=== PATIENT | male | born 1950 | race Caucasian/White ===

== ENCOUNTER → 2017-08-18 | Outpatient (CLI) | payer OTHER ==
[~2017-08-18] MED LIST: AMT50 PO; ASCO100061 PO; ASPI81TA28 PO; ATOR-24 PO; CLON0.5T3 PO; COEN10CA5 PO; DEXL60CA4 PO; ESCI1TAB10 PO; FLUT0.0529 NAE; GLUC15002 PO; IMT100 PO; MULT-506 PO; OMEG12006 PO; RIBO1TAB4 PO; TAMS0.4C38 PO; TOPI50TA16 PO
--- NOTE | 2017-08-18 11:13 | DIAGNOSTIC IMAGING REPORT ---
KUB HISTORY: Follow-up study in a patient with history of kidney stones N20.0 [id number] COMPARISON: KUB 12/14/2013, CT 11/24/2013. FINDINGS: The bowel gas pattern is non-obstructive. 1.5 cm radiodensity overlying the ascending colon suggests ingested material. There is no organomegaly. Renal shadows are partially obscured by bowel gas. No definite renal calculi identified. No ureteral calculi. No pneumoperitoneum or pneumatosis. No fracture. Vascular calcifications are noted. IMPRESSION: No renal or ureteral stones identified. Electronically signed by: Woody Baires M.D. 08/18/2017 11:11 AM Dictated Date/Time: 08/18/2017 11:10 AM
== END | disposition home or self-care (01) ==
LOC: C.RAD 09:49
PROVIDERS: ATTEND Urology
DX: N20.0 Calculus of kidney (principal); N40.1 Benign prostatic hyperplasia with lower urinary tract symptoms

== ENCOUNTER 2017-08-31 21:33 | Observation (INO) | payer OTHER ==
[~2017-08-31] VITALS: Ht 170.2 cm; Wt 83.3 kg
--- NOTE | 2017-08-31 22:10 | DIAGNOSTIC IMAGING REPORT ---
CHEST ONE VIEW PORTABLE HISTORY: 67 years-old Male CHEST PAIN acute atypical chest pain COMPARISON: Portable chest radiograph 01/01/2014 TECHNIQUE: Portable AP view of the chest FINDINGS: Cardiomediastinal and hilar silhouettes are within normal limits. Tortuosity of the descending thoracic aorta redemonstrated. There is no pneumothorax, pleural effusion, focal airspace consolidation or overt pulmonary edema. Degenerative changes are seen within the bilateral shoulders. The bones appear grossly intact. IMPRESSION: No acute cardiopulmonary process. The above report was generated using voice recognition software. It may contain grammatical, syntax or spelling errors. Electronically signed by: Woody Baires M.D. 08/31/2017 10:08 PM Dictated Date/Time: 08/31/2017 10:07 PM
[2017-08-31 22:22] LABS: MEAN PLATELET VOLUME 9.9 fL (7.4-10.4)
[2017-08-31] MEDS ORDERED: COEN1CAP17 PO (22:34)
[2017-08-31] MEDS ORDERED: OMEG10007 PO (22:34)
[2017-08-31] MEDS ORDERED: PSYL0.524 PO (22:34)
[2017-08-31] MEDS ORDERED: MULT-513 PO (22:34)
[2017-08-31 22:35] LABS: POINT OF CARE TROPONIN I < 0.030 ng/ml (0-0.045)
[2017-08-31 22:37] LABS: BASO % 0.6 %; BASO ABS # 0.04 K/uL (0-0.2); COMPLETE YES; HEMATOCRIT 43.5 % (42-52); IG% 0.2 %; LYMPH % 34.2 %; LYMPH ABS # 2.17 K/uL (1.2-3.4); MEAN CELL VOLUME 92.4 fL (80-100); MEAN CORPUSCULAR HEMOGLOBIN 32.3 pg (25-34); MEAN CORPUSCULAR HGB CONC 34.9 g/dl (32-36); PLATELET COUNT 179 K/uL (130-400); RED BLOOD COUNT 4.71 M/uL (4.7-6.1); WHITE BLOOD COUNT 6.34 K/uL (4.8-10.8)
[2017-08-31] MEDS ORDERED: ASPI81TA28 PO (22:39)
[2017-08-31 22:41] LABS: ALT/SGPT 40 U/L (12-78); AST/SGOT 16 U/L (15-37); BLOOD UREA NITROGEN 20 mg/dl (7-18); BUN/CREATININE RATIO 16.8 (10-20); CALCIUM 8.3 mg/dl (8.5-10.1); CARBON DIOXIDE 26 mmol/L (21-32); CHLORIDE 107 mmol/L (98-107); CREATININE 1.19 mg/dl (0.60-1.40); GLUCOSE 88 mg/dl (70-99); POTASSIUM 3.6 mmol/L (3.5-5.1); SODIUM 140 mmol/L (136-145)
[2017-08-31 22:44] LABS: ALKALINE PHOSPHATASE 93 U/L (45-117)
[2017-08-31] MEDS ORDERED: OPTIRAY 320 IV PRN (23:00)
[2017-08-31] MEDS ORDERED: ASPIRIN 81 MG CHEW PO STA (23:57)
--- NOTE | 2017-09-01 00:03 | History and Physical ---
History & Physical Date & Time of Service: Sep 01, 2017 at 00:03 Chief Complaint: Tight Chest Back Pain Primary Care Physician: Roe Abreu D.O. History of Present Illness Source: patient Patient is a 67 yr male with PMH of Vertigo, BPH, GERD, Alfaro's Esophagus, Hyperlipidemia, MVP and Migraine presents with history of retrosternal chest pain that started at around 9pm today while at rest. Patient took 2 baby Aspirin and came to ED for further evaluation. Chest pain is "tightness" like radiating to back of chest, which lasted for about 20 minutes, 6/10 intensity, with no aggravating/relieving factors, has associated dizziness. Patient follows with for MVP. Patient states his migraine has been uncontrolled and has been requiring Sumatriptan almost everyday since last 2 weeks. His last stress test is in 2012 which was normal. Currently while in ED symptoms resolved. Denies any history of SOB, palpitations, orthopnea, PND, leg edema, diaphoresis, cough, fever, chills, change in vision, nausea, vomiting, abdominal pain, diarrhea, change in appetite, dysuria, recent Travel. Past Medical/Surgical History Medical Problems: (1) GERD (gastroesophageal reflux disease) Status: Chronic (2) History of BPH Status: Chronic (3) Hyperlipidemia Status: Chronic (4) Kidney stones Status: Chronic (5) Mitral valve prolapse Status: Chronic Surgical Problems: (1) History of knee surgery Status: Resolved Family History FHx: heart disease Father/Mother: Heart disease, HTN Social History Smoking Status: Never Smoker Alcohol Use: socially Drug Use: none Marital Status: Housing status: lives with family Occupational Status: employed Multi-Drug Resistant Organisms History of MDRO: No Allergies Coded Allergies: Meloxicam (Verified Allergy, Unknown, ., 08/31/17) Rofecoxib (Verified Allergy, Unknown, ., 08/31/17) Sulfa Drugs (Verified Allergy, Unknown, ., 08/31/17) Home Medications Scheduled Amitriptyline Hcl (Elavil), 100 MG PO HS Amitriptyline Hcl (Elavil), 50 MG PO QAM Aspirin (Aspirin Ec), 81 MG PO DAILY Aspirin (Aspirin Ec), 162 MG PO TODAY Atorvastatin (Lipitor), 40 MG PO DAILY Coenzyme Q10 (Ubidecarenone) (Co Q 10), 100 MG PO BID Dexlansoprazole (Dexilant), 60 MG PO DAILY Escitalopram Oxalate (Lexapro), 20 MG PO DAILY Fish Oil ([place]-3), 2 CAP PO QAM Zrnlgswhcep-Pvbvdwpspgl-Ivq C- (Glucosamine 1500 Complex), 2 CAP PO QAM Multivitamins/Minerals (Mvi With Minerals), 1 TAB PO DAILY Riboflavin (Riboflavin), 200 MG PO BID Tamsulosin Hcl (Flomax), 0.4 MG PO QPM Topiramate (Topamax), 50 MG PO QAM Topiramate (Topamax), 100 MG PO QPM Scheduled PRN Clonazepam (Klonopin), 0.5 MG PO HS PRN for Sleep Psyllium (Metamucil), 1 CAP PO TID PRN for Constipation Sumatriptan Succinate (Imitrex), 100 MG PO UD PRN for Migraine Review of Systems See HPI for pertinent positives & negatives. A total of 10 systems reviewed and were otherwise negative. Physical Exam Vital Signs Date Time Temp Pulse Resp B/P (MAP) Pulse Ox O2 Delivery O2 Flow Rate FiO2 08/31/17 23:30 91 16 144/103 97 Room Air 08/31/17 22:33 64 16 131/92 96 Room Air 08/31/17 22:30 Room Air 08/31/17 22:25 66 08/31/17 21:36 36.6 78 18 144/91 95 Room Air General Appearance: WD/WN, no apparent distress Head: normocephalic, atraumatic Eyes: normal inspection, PERRL, EOMI, sclerae normal ENT: normal ENT inspection, hearing grossly normal Neck: supple, trachea midline Respiratory/Chest: chest non-tender, lungs clear, normal breath sounds, no respiratory distress, no accessory muscle use Cardiovascular: regular rate, rhythm, no edema, no murmur Abdomen/GI: normal bowel sounds, non tender, soft Back: normal inspection Extremities/Musculoskelatal: normal inspection, no pedal edema Neurologic/Psych: rubber and pounder II-XII nml as tested, no motor/sensory deficits, alert, normal mood/affect, oriented x 3 Skin: normal color, warm/dry Diagnostics Laboratory Results Results Past 24 Hours Test 08/31/17 22:10 08/31/17 22:16 Range/Units White Blood Count 6.34 4.8-10.8 K/uL Red Blood Count 4.71 4.7-6.1 M/uL Hemoglobin 15.2 14.0-18.0 g/dL Hematocrit 43.5 42-52 % Mean Corpuscular Volume 92.4 80-100 fL Mean Corpuscular Hemoglobin 32.3 25-34 pg Mean Corpuscular Hemoglobin Concent 34.9 32-36 g/dl Platelet Count 179 130-400 K/uL Mean Platelet Volume 9.9 7.4-10.4 fL Neutrophils (%) (Auto) 51.0 % Lymphocytes (%) (Auto) 34.2 % Monocytes (%) (Auto) 11.0 % Eosinophils (%) (Auto) 3.0 % Basophils (%) (Auto) 0.6 % Neutrophils # (Auto) 3.23 1.4-6.5 K/uL Lymphocytes # (Auto) 2.17 1.2-3.4 K/uL Monocytes # (Auto) 0.70 0.11-0.59 K/uL Eosinophils # (Auto) 0.19 0-0.5 K/uL Basophils # (Auto) 0.04 0-0.2 K/uL RDW Standard Deviation 44.1 36.4-46.3 fL RDW Coefficient of Variation 13.1 11.5-14.5 % Immature Granulocyte % (Auto) 0.2 % Immature Granulocyte # (Auto) 0.01 0.00-0.02 K/uL Sodium Level 140 136-145 mmol/L Potassium Level 3.6 3.5-5.1 mmol/L Chloride Level 107 98-107 mmol/L Carbon Dioxide Level 26 21-32 mmol/L Anion Gap 7.0 3-11 mmol/L Blood Urea Nitrogen 20 7-18 mg/dl Creatinine 1.19 0.60-1.40 mg/dl Est Creatinine Clear Calc Drug Dose 61.2 ml/min Estimated GFR () 71.8 Estimated GFR (Non- 62.0 BUN/Creatinine Ratio 16.8 10-20 Random Glucose 88 70-99 mg/dl Calcium Level 8.3 8.5-10.1 mg/dl Total Bilirubin 0.3 0.2-1 mg/dl Direct Bilirubin < 0.1 0-0.2 mg/dl Aspartate Amino Transf (AST/SGOT) 16 15-37 U/L Alanine Aminotransferase (ALT/SGPT) 40 12-78 U/L Alkaline Phosphatase 93 45-117 U/L Total Protein 6.8 6.4-8.2 gm/dl Albumin 3.3 3.4-5.0 gm/dl Lipase 184 73-393 U/L Bedside D-Dimer > 450 0-450 ng/mlFEU Bedside Troponin I < 0.030 0-0.045 ng/ml Diagnostic Radiology CXR: No acute cardiopulmonary process CTA: Preliminary Report: No pulmonary embolus or other acute abnormality identified. Normal thoracic aorta without aneurysm or dissection. Basilar dependent atelectasis. Lungs are otherwise clear. Question small hypodense nodule in the left thyroid. EKG EKG: NSR, No signs of Ischemia Impression Assessment and Plan Chest Pain: R/O ACS Risk factors: H/O HLP, Family history Initial troponin:Negative EKG shows:NSR CXR: Unremarkable CTA: No PE on preliminary report Last ECHO: EF:60-64% March 2017; Moderate MR, [place] posterior mitral leaflet prolapse Trend serial cardiac enzymes, repeat EKG, fasting lipid panel in AM Continue Aspirin, statins Oxygen PRN NPO after midnight Cardiology consulted Hold Sumatriptan HTN: Elevated likely situational No known history of HTN Labetalol PRN monitor Elevated D-Dimer: CTA: No PE Check venous doppler BPH: Continue flomax GERD: Alfaro's Esophagus: Continue PPI Hyperlipidemia: Continue Lipitor Migraine: Continue home meds Hold Sumatriptan DVT Px: Heparin SQ Code Status: Full Code Disposition: Expect to discharge when when stable
--- NOTE | 2017-09-01 00:05 | EMERGENCY ROOM VISIT NOTE ---
History First contact with patient: 21:40 Chief Complaint: CHEST PAIN Stated Complaint: TIGHT CHEST BACK PAIN History of Present Illness The patient is a 67 year old male who presents to the Emergency Room with complaints of midsternal chest pain and back pain that did not radiate together for the past hour that is now resolved that was 6 out of 10 described as tightness that is completely relieved now. Patient has a history of mitral valve prolapse. 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 No recent stress test or echo. No prior heart attack. No prior stroke. No known aneurysm. No history of blood clots. No recent travel. He does not smoke. Patient states the symptoms have completely resolved. Patient denies dyspnea, abdominal pain, diaphoresis, leg pain or swelling, recent illness. Patient exercises 3 times a week without difficulties. Patient took 2 81 mg aspirins at home. Review of Systems See HPI for pertinent positives & negatives. A total of 10 systems reviewed and were otherwise negative. Past Medical/Surgical History Medical Problems: (1) GERD (gastroesophageal reflux disease) (2) History of BPH (3) Hyperlipidemia (4) Kidney stones (5) Mitral valve prolapse Surgical Problems: (1) History of knee surgery Depression, migraines Family History FHx: heart disease Social History Smoking Status: Never Smoker Alcohol Use: none Drug Use: none Marital Status: Housing Status: lives with family Occupation Status: employed Current/Historical Medications Scheduled Amitriptyline Hcl (Elavil), 100 MG PO HS Amitriptyline Hcl (Elavil), 50 MG PO QAM Aspirin (Aspirin Ec), 81 MG PO DAILY Aspirin (Aspirin Ec), 162 MG PO TODAY Atorvastatin (Lipitor), 40 MG PO DAILY Coenzyme Q10 (Ubidecarenone) (Co Q 10), 100 MG PO BID Dexlansoprazole (Dexilant), 60 MG PO DAILY Escitalopram Oxalate (Lexapro), 20 MG PO DAILY Fish Oil ([place]-3), 2 CAP PO QAM Kobdxwpegqy-Aynzpllfvgd-Fiu C- (Glucosamine 1500 Complex), 2 CAP PO QAM Multivitamins/Minerals (Mvi With Minerals), 1 TAB PO DAILY Riboflavin (Riboflavin), 200 MG PO BID Tamsulosin Hcl (Flomax), 0.4 MG PO QPM Topiramate (Topamax), 50 MG PO QAM Topiramate (Topamax), 100 MG PO QPM Scheduled PRN Clonazepam (Klonopin), 0.5 MG PO HS PRN for Sleep Psyllium (Metamucil), 1 CAP PO TID PRN for Constipation Sumatriptan Succinate (Imitrex), 100 MG PO UD PRN for Migraine Physical Exam Vital Signs Date Time Temp Pulse Resp B/P (MAP) Pulse Ox O2 Delivery O2 Flow Rate FiO2 08/31/17 23:30 91 16 144/103 97 Room Air 08/31/17 22:33 64 16 131/92 96 Room Air 08/31/17 22:30 Room Air 08/31/17 22:25 66 08/31/17 21:36 36.6 78 18 144/91 95 Room Air Physical Exam VITALS: Vitals are noted on the nurse's note and reviewed by myself. Vital signs stable. GENERAL: Pleasant male, in no acute distress, nondiaphoretic, well-developed well-nourished. SKIN: The skin was without rashes, erythema, edema, or bruising. There is no tenting of the skin. Capillary reflex less than 2 seconds. HEAD: Normocephalic atraumatic. EARS: External auditory canals clear, tympanic membranes pearly mckeon without erythema or effusion bilaterally. EYES: Pupils equal round and reactive to light and accommodation. Conjunctivae without injection, sclerae without icterus. Extraocular movements intact. NOSE: Patent, turbinates without inflammation or discharge MOUTH: Mucous membranes moist. Pharynx without erythema or exudate. Uvula midline. Airway patent. Tongue does not deviate. NECK: Supple without nuchal rigidity. No lymphadenopathy. No thyromegaly. Cervical spine is nontender. No JVD. HEART: Regular rate and rhythm chest nontender to palpation LUNGS: Clear to auscultation bilaterally without wheezes, rales or rhonchi. No dullness to percussion. No retractions or accessory muscle use. ABDOMEN: Positive bowel sounds x 4. Normal tympanic percussion. Soft, nontender, without masses or organomegaly. Arambula sign negative. No guarding or rebound tenderness. MUSCULOSKELETAL: No muscle atrophy, erythema, or edema noted. NEURO: Patient was alert and oriented to person place and time. Normal sensation to light and sharp touch. No focal neurological deficits. Medical Decision & Procedures Laboratory Results 08/31/17 22:10 Red Blood Count 4.71, Mean Corpuscular Volume 92.4, Mean Corpuscular Hemoglobin 32.3, Mean Corpuscular Hemoglobin Concent 34.9, Mean Platelet Volume 9.9, Neutrophils (%) (Auto) 51.0, Lymphocytes (%) (Auto) 34.2, Monocytes (%) (Auto) 11.0, Eosinophils (%) (Auto) 3.0, Basophils (%) (Auto) 0.6, Neutrophils # (Auto ) 3.23, Lymphocytes # (Auto) 2.17, Monocytes # (Auto) 0.70, Eosinophils # (Auto ) 0.19, Basophils # (Auto) 0.04 08/31/17 22:10 Test 08/31/17 22:10 08/31/17 22:16 White Blood Count 6.34 K/uL (4.8-10.8) Red Blood Count 4.71 M/uL (4.7-6.1) Hemoglobin 15.2 g/dL (14.0-18.0) Hematocrit 43.5 % (42-52) Mean Corpuscular Volume 92.4 fL (80-100) Mean Corpuscular Hemoglobin 32.3 pg (25-34) Mean Corpuscular Hemoglobin Concent 34.9 g/dl (32-36) Platelet Count 179 K/uL (130-400) Mean Platelet Volume 9.9 fL (7.4-10.4) Neutrophils (%) (Auto) 51.0 % Lymphocytes (%) (Auto) 34.2 % Monocytes (%) (Auto) 11.0 % Eosinophils (%) (Auto) 3.0 % Basophils (%) (Auto) 0.6 % Neutrophils # (Auto) 3.23 K/uL (1.4-6.5) Lymphocytes # (Auto) 2.17 K/uL (1.2-3.4) Monocytes # (Auto) 0.70 K/uL (0.11-0.59) Eosinophils # (Auto) 0.19 K/uL (0-0.5) Basophils # (Auto) 0.04 K/uL (0-0.2) RDW Standard Deviation 44.1 fL (36.4-46.3) RDW Coefficient of Variation 13.1 % (11.5-14.5) Immature Granulocyte % (Auto) 0.2 % Immature Granulocyte # (Auto) 0.01 K/uL (0.00-0.02) Anion Gap 7.0 mmol/L (3-11) Est Creatinine Clear Calc Drug Dose 61.2 ml/min Estimated GFR () 71.8 Estimated GFR (Non- 62.0 BUN/Creatinine Ratio 16.8 (10-20) Calcium Level 8.3 mg/dl (8.5-10.1) Total Bilirubin 0.3 mg/dl (0.2-1) Direct Bilirubin < 0.1 mg/dl (0-0.2) Aspartate Amino Transf (AST/SGOT) 16 U/L (15-37) Alanine Aminotransferase (ALT/SGPT) 40 U/L (12-78) Alkaline Phosphatase 93 U/L (45-117) Total Protein 6.8 gm/dl (6.4-8.2) Albumin 3.3 gm/dl (3.4-5.0) Lipase 184 U/L (73-393) Bedside D-Dimer > 450 ng/mlFEU (0-450) Bedside Troponin I < 0.030 ng/ml (0-0.045) ED Course Prior records/ancillary studies reviewed. Triage Nursing notes reviewed. The patient's history was concerning for chest pain. Differential diagnosis: Etiologies such as cardiac ischemia, aortic dissection, pulmonary embolism, pneumonia, pneumothorax, musculoskeletal, infections, pericarditis, myocarditis , esophageal rupture, gastrointestinal, as well as others were entertained. Physical examination: As above. ER treatment provided: Patient was observed On reassessment the patient felt better. Diagnostic interpretation by me: The electrocardiogram was normal sinus, normal intervals, no acute ST-T wave changes, Q-wave in the anterior lateral leads, rate of 66. Impression normal sinus rhythm with Q waves in the anterolateral leads interpreted by myself and Q waves are unchanged from prior EKG. The labs revealed negative troponin. Elevated d-dimer Stable H&H Imaging studies: Chest x-ray as above CHEST ONE VIEW PORTABLE HISTORY: 67 years-old Male CHEST PAIN acute atypical chest pain COMPARISON: Portable chest radiograph 01/01/2014 TECHNIQUE: Portable AP view of the chest FINDINGS: Cardiomediastinal and hilar silhouettes are within normal limits. Tortuosity of the descending thoracic aorta redemonstrated. There is no pneumothorax, pleural effusion, focal airspace consolidation or overt pulmonary edema. Degenerative changes are seen within the bilateral shoulders. The bones appear grossly intact. IMPRESSION: No acute cardiopulmonary process. The above report was generated using voice recognition software. It may contain grammatical, syntax or spelling errors. Electronically signed by: Woody Baires M.D. CTA CHEST: No pulmonary embolus or other acute abnormality identified. Normal thoracic aorta without aneurysm or dissection. Basilar dependent atelectasis. Lungs are otherwise clear. Question small hypodense nodule in the left thyroid. Radiologist: Yoon Lamar M.D. Consultation: A consultation was placed with the hospitalist, Dr Shin. The case was discussed and diagnostics were reviewed. The patient was evaluated in the ER for further treatment. Exam and history seem consistent with chest pain with concerns for cardiac in etiology. No recent stress test. First troponin is negative. Unchanged EKG. Negative CTA. He'll be evaluated by medicine for possible admission. By the evaluation outlined above emergent etiologies such as aortic dissection, pulmonary embolism, pneumonia, pneumothorax, infections, pericarditis, myocarditis, gastrointestinal, as well as others were deemed relatively unlikely. The pt informed about the findings as listed above. All questions were answered and pleased with the treatment. Case reviewed with my attending Medical Decision As above Medication Reconcilliation Current Medication List: was personally reviewed by me Blood Pressure Screening Patient's blood pressure: Elevated blood pressure Blood pressure disposition: Elevated BP felt to be situational Impression Primary Impression: Substernal precordial chest pain Additional Impression: Upper back pain Departure Information Dispostion Being Evaluated By Hospitalist Condition GOOD Referrals Roe Abreu, D.O. (PCP) Patient Instructions My [facility] Problem Qualifiers
--- NOTE | 2017-09-01 00:13 | EMERGENCY ROOM VISIT NOTE ---
ED Visit Note First contact with patient: 21:40 The patient was seen and examined with Brittani Olivares PA-C. I agree with the history, physical and findings. Please see the note for disposition and details.
[2017-09-01] MEDS ORDERED: ONDANSETRON INJ 2 MG/ML 2 ML VIAL IV PRN (00:45)
[2017-09-01] MEDS ORDERED: ACETAMINOPHEN 325 MG TAB PO PRN (00:45)
[2017-09-01] MEDS ORDERED: NITROGLYCERIN 0.4 MG SL PER TAB CHARGE SL PRN (00:45)
[2017-09-01] MEDS ORDERED: LABETALOL HCL IV 5 MG/ML 20ML IV PRN (00:45)
[2017-09-01] MEDS ORDERED: CLONAZEPAM 0.5 MG TAB PO PRN (01:00)
[2017-09-01 02:05] VITALS: BP 137/97; PULSE 96; TEMP 36.5; O2SAT 95; Ht 170.2 cm; Wt 83.3 kg
[2017-09-01] MEDS ORDERED: NSS IV ONE (03:30)
[2017-09-01] MEDS ORDERED: KCL IV ONE (03:30)
[2017-09-01 03:46] VITALS: BP 129/78; PULSE 64; TEMP 36.8; O2SAT 96
[2017-09-01] MEDS ORDERED: IV FLUIDS COMPLETED PRN (05:30)
[2017-09-01] MEDS: HEPARIN SOD 5000 UNIT/0.5 ML CARP SQ SCH ×2 (06:00→14:00)
--- NOTE | 2017-09-01 06:45 | DIAGNOSTIC IMAGING REPORT ---
CT ANGIOGRAM OF THE CHEST CLINICAL HISTORY: Atypical chest pain and elevated d-dimer COMPARISON STUDY: Chest x-ray dated 08/31/2017 TECHNIQUE: Following the IV administration of 93 mL of Optiray-320, CT angiogram of the thorax was performed from the thoracic inlet to the lung bases utilizing the pulmonary embolus protocol. Images are reviewed in the axial, sagittal, and coronal planes. IV contrast was administered without complication. MIP imaging was performed. A dose lowering technique was utilized adhering to the principles of ALARA. CT DOSE: 435.13 mGy.cm FINDINGS: There is an 11 mm left lobe thyroid nodule No pathologically enlarged axillary mediastinal or hilar lymph nodes were visualized. There was no evidence of thoracic aortic dilatation. There were no pulmonary artery filling defects to indicate acute pulmonary embolism. No pleural effusions are visualized. There are dependent atelectatic changes. There is no lobar consolidation. IMPRESSION: 1. No CT evidence of acute pulmonary embolism 2. 11 mm left lobe thyroid nodule 3. Dependent atelectasis Electronically signed by: Douglas Cano M.D. 09/01/2017 6:44 AM Dictated Date/Time: 09/01/2017 6:41 AM
[2017-09-01 07:07] LABS: HEMATOCRIT 45.2 % (42-52); MEAN CELL VOLUME 92.1 fL (80-100); MEAN CORPUSCULAR HGB CONC 34.7 g/dl (32-36); MEAN PLATELET VOLUME 9.9 fL (7.4-10.4); PLATELET COUNT 175 K/uL (130-400); RED BLOOD COUNT 4.91 M/uL (4.7-6.1); WHITE BLOOD COUNT 5.21 K/uL (4.8-10.8)
[2017-09-01 07:15] LABS: PROTHROMBIN TIME (PATIENT) 10.5 SECONDS (9.0-12.0)
[2017-09-01 07:41] LABS: BLOOD UREA NITROGEN 19 mg/dl (7-18); BUN/CREATININE RATIO 15.9 (10-20); CALCIUM 8.4 mg/dl (8.5-10.1); CARBON DIOXIDE 26 mmol/L (21-32); CHLORIDE 108 mmol/L (98-107); GLUCOSE 89 mg/dl (70-99); MAGNESIUM 2.4 mg/dl (1.8-2.4); POTASSIUM 3.8 mmol/L (3.5-5.1); SODIUM 141 mmol/L (136-145)
[2017-09-01 07:46] LABS: CHOLESTEROL 151 mg/dl (0-200); HDL CHOLESTEROL 51 mg/dl; LDL CHOLESTEROL CALCULATED 90 mg/dl; TRIGLYCERIDES 52 mg/dl (0-150); VERY LOW DENSITY LIPOPROT CALC 10 mg/dl
[2017-09-01] MEDS ORDERED: INFLUENZA VACCINE HIGH DOSE 65+ 0.5 ML SYR IM. ONE (08:00)
[2017-09-01] MEDS ORDERED: INFLUENZA ADMINISTRATION CHARGE ONE (08:00)
--- NOTE | 2017-09-01 08:05 | DIAGNOSTIC IMAGING REPORT ---
VENOUS DOPPLER LWR EXT BILA CLINICAL HISTORY: 67 years-old Male presenting with R/O DVT. TECHNIQUE: Real-time grayscale and color and spectral Doppler ultrasound imaging of the veins of the bilateral lower extremities was performed. Compression and augmentation were also utilized. COMPARISON: None. FINDINGS: Right: Common femoral vein: Patent. Femoral vein: Patent. Greater saphenous vein: Patent. Popliteal vein: Patent. Calf veins: Patent. Left: Common femoral vein: Patent. Femoral vein: Patent. Greater saphenous vein: Patent. Popliteal vein: Patent. Calf veins: Patent. Other: None. IMPRESSION: No evidence of deep venous thrombosis. Electronically signed by: Seb Bazan M.D. 09/01/2017 8:03 AM Dictated Date/Time: 09/01/2017 8:02 AM
[2017-09-01] MEDS ORDERED: TOPIRAMATE 50 MG TAB PO SCH (09:00)
[2017-09-01] MEDS ORDERED: PANTOprazole SOD 40 MG TAB PO SCH (09:00)
[2017-09-01] MEDS ORDERED: AMITRIPTYLINE HCL 50 MG TAB PO SCH (09:00)
[2017-09-01] MEDS ORDERED: ATORVASTATIN 40 MG TAB PO SCH (09:00)
[2017-09-01] MEDS ORDERED: ESCITALOPRAM OXALATE 20 MG TAB PO SCH (09:00)
[2017-09-01] MEDS ORDERED: RIBOFLAVIN 200 MG PO SCH (09:00)
[2017-09-01] MEDS ORDERED: ASPIRIN 81 MG ECTAB PO SCH (09:00)
--- NOTE | 2017-09-01 10:40 | EXERCISE STRESS ECHO ---
*NOTICE TO RECEIVING LIBERTARIAN AGENCY This information is strictly Confidential and protected under [place] law. [place] law prohibits you from making any further disclosure of this information unless further disclosure is expressly permitted by the written consent of the person to whom it pertains or is authorized by law. A general authorization for the release of medical or other information is not sufficient for this purpose. Hospital accepts no responsibility if the information is made available to any other person, INCLUDING THE PATIENT. Interpretation Summary * Name: OMA LI Study Date: 09/01/2017 08:04 AM BP: 123/91 mmHg * Patient Location: S239 HR: 65 * : 1950 (M/d/yyyy) Gender: Male Height: 67 in * Age: 67 yrs Ethnicity: CA Weight: 183 lb * Ordering Physician: Vinnie Shin * Referring Physician: Self, Referred * Performed By: Paris Webber RCS * * Reason For Study: CHEST PAIN * BSA: 1.9 m2 * -- Conclusions -- * Nonischemic exercise stress echocardiogram. * No arrhythmias. * Normal HR and BP response to exercise. * Above average exercise tolerance. * Chest pain was not reproduced with stress. * At rest, normal LV chamber size and wall thickness. * Normal LV systolic function, without regional wall motion abnormality, EF 60-65%. * Grade I diastolic dysfunction. * There is borderline posterior mitral leaflet prolapse. Mild to moderate mitral regurgitation. * Mild left atrial enlargement. Procedure Details * ECHOEX, CPT #[id number] * ECHO COLOR FLOW, CPT #[id number] * ECHO DOPPLER, CPT #[id number] Left Ventricle * The left ventricle is normal in size. * There is normal left ventricular wall thickness. * Left ventricular systolic function is normal. * No segmental left ventricular wall motion abnormalities are noted. * Ejection Fraction = 60-65%. * Resting wall motion: Normal. Stress wall motion: Appropriate increase in Left ventricular systolic function and decrease in cavity size. No stress induced segmental wall motion abnormalities. Right Ventricle * The right ventricular cavity size is normal (basal dimension <4.2 cm in right ventricular apical 4-chamber view). * The right ventricular systolic function is normal as assessed by tricuspid annular plane systolic excursion (TAPSE) (normal >1.5 cm). Atria * The left atrium is mildly dilated. * Right atrial size is normal. * No ASD detected; PFO is not assessed. Mitral Valve * There is borderline posterior mitral leaflet prolapse. * There is no mitral valve stenosis. * There is moderate mitral regurgitation. Tricuspid Valve * The tricuspid valve is normal in structure and function. Aortic Valve * The aortic valve is normal in structure and function. Pulmonic Valve * The pulmonary valve is not well seen, but the Doppler examination is normal without significant regurgitation or stenosis. Great Vessels * The aortic root is normal size. Pericardium * There is no pericardial effusion. Stress Parameters * Normal baseline electrocardiogram. * No arrhythmia were noted with stress. * There was no new ST segment depression. * The stress portion of this study was personally supervised by the undersigned interpreting physician. * Rest heart rate was '65' BPM. * Rest blood pressure was '123/91' * Maximum heart rate achieved was 153 bpm. * Maximum heart rate was 101 % of maximum age-predicted heart rate. * Maximum blood pressure was '171/86' * Total exercise time was '09:25' * Maximum exercise MET level achieved was '10.701' METS * Maximum treadmill speed was '4.20' miles per hour. * Maximum treadmill elevation was '16.00'% grade. Left Ventricular Diastolic Function * Grade I diastolic dysfunction, (abnormal relaxation pattern). MMode 2D Measurements and Calculations IVSd 0.97 cm IVSs 1.4 cm LVIDd 4.4 cm LVIDs 3.2 cm LVPWd 1.0 cm LVPWs 1.2 cm IVS/LVPW 0.94 FS 26.8 % EDV(Teich) 89.3 ml ESV(Teich) 42.4 ml EF(Teich) 52.5 % EDV(cubed) 87.1 ml ESV(cubed) 34.2 ml EF(cubed) 60.7 % % IVS thick 40.0 % % LVPW thick 16.7 % LV mass(C)d 149.5 grams LV mass(C)dI 76.8 grams/m\S\2 LV mass(C)s 134.9 grams LV mass(C)sI 69.3 grams/m\S\2 SV(Teich) 46.8 ml SI(Teich) 24.0 ml/m\S\2 SV(cubed) 52.9 ml SI(cubed) 27.2 ml/m\S\2 Ao root diam 3.0 cm Ao root area 6.9 cm\S\2 ACS 2.0 cm LA dimension 4.2 cm LA/Ao 1.4 LVOT diam 2.1 cm LVOT area 3.4 cm\S\2 LVAd ap4 33.4 cm\S\2 LVLd ap4 8.1 cm EDV(MOD-sp4) 109.6 ml EDV(sp4-el) 116.8 ml LVAs ap4 22.6 cm\S\2 LVLs ap4 7.4 cm ESV(MOD-sp4) 57.1 ml ESV(sp4-el) 58.8 ml EF(MOD-sp4) 47.9 % EF(sp4-el) 49.7 % LVAd ap2 32.1 cm\S\2 LVLd ap2 8.6 cm EDV(MOD-sp2) 95.7 ml EDV(sp2-el) 101.2 ml LVAs ap2 19.8 cm\S\2 LVLs ap2 7.6 cm ESV(MOD-sp2) 44.5 ml ESV(sp2-el) 44.0 ml EF(MOD-sp2) 53.5 % EF(sp2-el) 56.5 % LVLd %diff 6.0 % EDV(MOD-bp) 104.8 ml LVLs %diff 2.3 % ESV(MOD-bp) 50.3 ml EF(MOD-bp) 52.0 % SV(MOD-sp4) 52.5 ml SI(MOD-sp4) 27.0 ml/m\S\2 SV(MOD-sp2) 51.2 ml SI(MOD-sp2) 26.3 ml/m\S\2 SV(MOD-bp) 54.5 ml SI(MOD-bp) 28.0 ml/m\S\2 SV(sp4-el) 58.0 ml SI(sp4-el) 29.8 ml/m\S\2 SV(sp2-el) 57.2 ml SI(sp2-el) 29.4 ml/m\S\2 Doppler Measurements and Calculations MV E max iban 72.8 cm/sec MV A max iban 86.8 cm/sec MV E/A 0.84 MV P1/2t max iban 85.4 cm/sec MV P1/2t 75.3 msec MVA(P1/2t) 2.9 cm\S\2 MV dec slope 332.1 cm/sec\S\2 MV dec time 0.24 sec Ao V2 max 106.8 cm/sec Ao max PG 4.6 mmHg Ao max PG (full) 0.32 mmHg JEFE(V,A) 3.3 cm\S\2 JEFE(V,D) 3.3 cm\S\2 LV V1 max PG 4.2 mmHg LV V1 max 103.0 cm/sec MR max iban 566.0 cm/sec MR max PG 128.1 mmHg TR max iban 208.8 cm/sec
[2017-09-01 10:56] VITALS: BP_SYST 120; BP_SYST 98; BP_DIAS 58; BP_DIAS 77; PULSE 78; PULSE 89; TEMP 36.5; TEMP 36.8; O2SAT 93; O2SAT 95
--- NOTE | 2017-09-01 11:02 | CARDIOLOGY CONSULTATION ---
DATE OF CONSULTATION: 09/01/2017 CONSULTATION REQUESTED BY: Dr. Shin. REASON FOR CONSULTATION: Chest pain. HISTORY OF PRESENT ILLNESS: Mr. Storey is a very pleasant 67-year-old gentleman, who normally follows with Dr. Kirk of our cardiology practice, who presented to [facility] Emergency Department late in the evening of 08/31/2017 with a complaint of chest pain. The patient states he was in his normal state of health yesterday except for migraine, when last evening he was sitting at his computer, planning a family vacation, when he suddenly developed chest discomfort. He described it as a substernal tightness that radiated across his precordium and back through to his back. He denied any associated diaphoresis, shortness of breath, nausea, lightheadedness, dizziness, or syncope. He states that it is just the discomfort that was sitting there. He denies any previous similar episodes. He denied any trauma to his chest recently or eating anything out of the ordinary. He states that the discomfort lasted for approximately 20 minutes and then, resolved on its own. His evaluation in the Emergency Department was unremarkable. He was then admitted to telemetry. His cardiac enzymes were negative x2. EKG was nonischemic and again, he remained pain free. Of note, the patient has been having ongoing history of migraines lately. He states he has been having migraines every day for a few weeks now and he has been taking his sumatriptan every day for several weeks now. He was previously seen by neurology for his headaches, but has not seen them in some time now. PAST SURGICAL HISTORY: 1. Multiple colonoscopies. 2. Multiple upper endoscopies. 3. Tonsillectomy. 4. Knee surgery. MEDICAL ILLNESSES: 1. Mitral valve prolapse with moderate mitral regurgitation. 2. Vertigo. 3. BPH. 4. Hypercholesterolemia. FAMILY HISTORY: Remarkable for father suffered a myocardial infarction at age 50. SOCIAL HISTORY: He denies any tobacco use. Drinks rare alcohol. No recreational drug use. He is . He has 1 child. He is retired from the [employer]. He exercises, going to the gym 3 days a week. REVIEW OF SYSTEMS: As per HPI, all other review of systems reviewed and negative at this time. ALLERGIES: 1. MELOXICAM. 2. ROFECOXIB. 3. SULFA. MEDICATIONS AN OUTPATIENT: 1. Aspirin 81 mg daily. 2. Coenzyme Q10 at 100 mg 3 times a day. 3. Atorvastatin 40 mg daily. 4. Sumatriptan 100 mg daily. 5. Elavil b.i.d. 6. Escitalopram daily. 7. Tamsulosin daily. PHYSICAL EXAMINATION: VITALS: Temperature 36.8, pulse 64, respiratory rate 12, and blood pressure 129/78. GENERAL: Awake, alert, and oriented x3, in no acute distress. HEENT: Normocephalic and atraumatic. Pupils equal, round, and reactive to light and accommodation. Extraocular muscles intact. Anicteric sclerae. Moist mucous membranes. NECK: No JVD. No bruit. CARDIOVASCULAR: Regular. No S4. Normal S1 and S2. No S3. Slight 2/6 holosystolic ejection murmur greatest at the left sternal border midclavicular line with radiation to the left axilla. No rubs. PULMONARY: Clear to auscultation bilaterally. No rales, rhonchi, or wheezing. ABDOMEN: Bowel sounds x4, soft. No rebound, guarding, or tenderness. No organomegaly. EXTREMITIES: No clubbing, cyanosis or edema. +2 pedal pulses bilaterally. SKIN: Warm and dry. TEST RESULTS: A 12-lead EKG performed in the Emergency Department independently reviewed at this time shows normal sinus rhythm at 63 beats per minute, normal axis, normal intervals, and normal study. LABORATORY STUDIES OF SIGNIFICANCE: Troponin negative x2. Total cholesterol 151, LDL 90, HDL 51, and triglycerides of 52. Exercise stress echocardiogram was nonischemic. IMPRESSION: 1. Chest pain with nonischemic exercise stress echocardiogram. 2. Mitral valve prolapse with mitral regurgitation. 3. Migraines, requiring daily sumatriptan. 4. Dyslipidemia, controlled. RECOMMENDATIONS: It was my pleasure to see Mr. Storey in consultation today. From a cardiac standpoint, given the fact that his stress test was nonischemic, I do not see any ischemic component to his chest discomfort. So, no further cardiac testing or intervention is necessary at this time. It is possible that sumatriptan can cause chest pain and given the frequency with which the patient has been using lately, I would recommend evaluation with neurology for possible other medications to use for his migraines, but again is okay to discharging the patient to home from a cardiac standpoint and he should follow up as regularly scheduled with Dr. Kirk for his history of mitral regurgitation. Otherwise, no medication changes will be made today.
[2017-09-01 15:28] VITALS: BP 118/78; PULSE 84; TEMP 36.9; O2SAT 95
--- NOTE | 2017-09-01 16:42 | Discharge Instructions ---
Discharge Instructions Date of Service Sep 01, 2017. Admission Reason for Admission: Chest Pain . Discharge Discharge Diagnosis / Problem: chest pain- no sign of heart attack or blood clot in lungs Discharge Goals Goal(s): Decrease discomfort Activity Recommendations Activity Limitations: resume your previous activity . Instructions / Follow-Up Instructions / Follow-Up APPOINTMENTS: FAMILY MEDICINE 09/08/2017 9:30 AM Roe Abreu, DO OTHER INSTRUCTIONS: Seek medical attention if you have: * temperature above 101 * chest pain or trouble breathing * abdominal pain, nausea, vomiting * diarrhea, dark stools or bloody stools * any unanswered questions or concerns Call 911 if symptoms are severe. Call if you have any questions or problems. My cell # is [phone]. You can also reach a [facility] hospitalist on duty at [facility] 24 hours a day by calling [phone]. Please take good care of yourself. Kalyan Gamino . Current Hospital Diet Patient's current hospital diet: Regular Diet Discharge Diet Recommended Diet: AHA Diet (Heart Healthy) Pending Studies Studies pending at discharge: no Laboratory Results Lipid Panel Test 09/01/17 06:32 Range/Units Triglycerides Level 52 0-150 mg/dl Cholesterol Level 151 0-200 mg/dl HDL Cholesterol 51 mg/dl Cholesterol/HDL Ratio 3.0 LDL Cholesterol, Calculated 90 mg/dl Medical Emergencies . Who to Call and When: Medical Emergencies: If at any time you feel your situation is an emergency, please call 911 immediately. . Non-Emergent Contact Non-Emergency issues call your: Primary Care Provider, Hospital Doctor . . "Provider Documentation" section prepared by Kalyan Gamino. . VTE Core Measure Inpt VTE Proph given/why not?: Unfractionated heparin SQ
[2017-09-01 16:53] VITALS: BP 118/78; PULSE 84; TEMP 36.9; O2SAT 95
[2017-09-01] MEDS ORDERED: AMITRIPTYLINE HCL 100 MG TAB PO SCH (21:00)
[2017-09-01] MEDS ORDERED: TAMSULOSIN HCL 0.4 MG CAP PO SCH (21:00)
[2017-09-01] MEDS ORDERED: TOPIRAMATE 100 MG TAB PO SCH (21:00)
--- NOTE | 2017-09-02 17:38 | Progress Note ---
Medicine Progress Note Date & Time of Visit: late entry for 09/01/17 . Subjective Doing well. No chest pain, SOB. Ready to go home. . Objective Physical Exam: General- no distress Lungs- clear Heart- RRR Abdomen- + BS, soft, nontender Extremities- no pretibial edema or calf tenderness Neuro- alert . Assessment & Plan CHEST PAIN Cardiology consulted. MN ruled out. Treadmill stress test- no stress-induced ischemia. PE ruled out by CTA. ELEVATED D-DIMER CTA chest neg for PE. Venous duplex lower extremities neg for DVT. THYROID NODULE 11 mm left thyroid nodule incidentally noted on CT chest. Consider outpatient ultrasound and further evaluation / monitoring per guidelines. VTE PROPHYLAXIS SQ heparin. DISPOSITION Discharged to home. Family Medicine follow-up with Dr. Roe Abreu. .
--- NOTE | 2017-09-02 17:42 | Discharge Summary ---
Discharge Summary Date of Service Sep 02, 2017. Discharge Summary Admission Date: Sep 01, 2017 at 00:45 Discharge Date: Sep 01, 2017 Discharge Disposition: Home Principal Diagnosis: chest pain- ID and PE ruled out OTHER ACUTE / NEW DIAGNOSES: elevated D-dimer- PE and DVT ruled out thyroid nodule 11 mm left lobe . Secondary Diagnoses/Problems: Chronic and Resolved Medical Problems: (1) GERD (gastroesophageal reflux disease) Status: Chronic (2) History of BPH Status: Chronic (3) Hyperlipidemia Status: Chronic (4) Kidney stones Status: Chronic (5) Mitral valve prolapse Status: Chronic Surgical Problems: (1) History of knee surgery Status: Resolved . Procedures: cardiac monitoring CT chest venous duplex lower extremities exercise stress echocardiogram . Consultations: Cardiology with Dr. Blackwell . Pending Studies/Follow-Up: outpatient evaluation of thyroid nodule . Medication Reconciliation Continued Medications: Amitriptyline Hcl (Elavil) 50 Mg Tab 100 MG PO HS, 0 Refills Amitriptyline Hcl (Elavil) 50 Mg Tab 50 MG PO QAM, TAB Aspirin (Aspirin Ec) 81 Mg Tab 81 MG PO DAILY Aspirin (Aspirin Ec) 81 Mg Tab 162 MG PO TODAY Atorvastatin (Lipitor) 40 Mg Tab 40 MG PO DAILY, 0 Refills Clonazepam (Klonopin) 0.5 Mg Tab 0.5 MG PO HS PRN for Sleep, TAB Coenzyme Q10 (Ubidecarenone) (Co Q 10) 100 Mg Cap 100 MG PO BID Dexlansoprazole (Dexilant) 60 Mg Cap 60 MG PO DAILY Escitalopram Oxalate (Lexapro) 20 Mg Tab 20 MG PO DAILY, TAB Fish Oil ([place]-3) 1 Ea Cap 2 CAP PO QAM, CAP with dha & epa Zqiwlroaxps-Becohdmqjhm-Mkx C- (Glucosamine 1500 Complex) 1 Cap Cap 2 CAP PO QAM Multivitamins/Minerals (Mvi With Minerals) Tab 1 TAB PO DAILY, TAB Psyllium (Metamucil) 0.52 Gm Cap 1 CAP PO TID PRN for Constipation Riboflavin (Riboflavin) 400 Mg Tab 200 MG PO BID Sumatriptan Succinate (Imitrex) 100 Mg Tab 100 MG PO UD PRN for Migraine, TAB Tamsulosin Hcl (Flomax) 0.4 Mg Cap 0.4 MG PO QPM, CAP TAKE ONCE A DAY AFTER A MEAL. Topiramate (Topamax) 50 Mg Tab 50 MG PO QAM, TAB Topiramate (Topamax) 50 Mg Tab 100 MG PO QPM, TAB Admission Information HPI (per Admitting provider): Patient is a 67 yr male with PMH of Vertigo, BPH, GERD, Alfaro's Esophagus, Hyperlipidemia, MVP and Migraine presents with history of retrosternal chest pain that started at around 9pm today while at rest. Patient took 2 baby Aspirin and came to ED for further evaluation. Chest pain is "tightness" like radiating to back of chest, which lasted for about 20 minutes, 6/10 intensity, with no aggravating/relieving factors, has associated dizziness. Patient follows with for MVP. Patient states his migraine has been uncontrolled and has been requiring Sumatriptan almost everyday since last 2 weeks. His last stress test is in 2012 which was normal. Currently while in ED symptoms resolved. Denies any history of SOB, palpitations, orthopnea, PND, leg edema, diaphoresis, cough, fever, chills, change in vision, nausea, vomiting, abdominal pain, diarrhea, change in appetite, dysuria, recent Travel. . 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 ID ruled out. Treadmill stress test- no stress-induced ischemia. PE ruled out by CTA. ELEVATED D-DIMER CTA chest neg for PE. Venous duplex lower extremities neg for DVT. THYROID NODULE 11 mm left thyroid nodule incidentally noted on CT chest. Consider outpatient ultrasound and further evaluation / monitoring per guidelines. VTE PROPHYLAXIS SQ heparin. DISPOSITION Discharged to home. Family Medicine follow-up with Dr. Roe Abreu. . Discharge Instructions Date of Service Sep 01, 2017. Admission Reason for Admission: Chest Pain . Discharge Discharge Diagnosis / Problem: chest pain- no sign of heart attack or blood clot in lungs Discharge Goals Goal(s): Decrease discomfort Activity Recommendations Activity Limitations: resume your previous activity . Instructions / Follow-Up Instructions / Follow-Up APPOINTMENTS: FAMILY MEDICINE 09/08/2017 9:30 AM Roe Abreu, DO OTHER INSTRUCTIONS: Seek medical attention if you have: * temperature above 101 * chest pain or trouble breathing * abdominal pain, nausea, vomiting * diarrhea, dark stools or bloody stools * any unanswered questions or concerns Call 911 if symptoms are severe. Call if you have any questions or problems. My cell # is [phone]. You can also reach a [facility] [address] hospitalist on duty at [facility] [address] 24 hours a day by calling [phone]. Please take good care of yourself. Kalyan Gamino . Current Hospital Diet Patient's current hospital diet: Regular Diet Discharge Diet Recommended Diet: AHA Diet (Heart Healthy) Pending Studies Studies pending at discharge: no Laboratory Results Lipid Panel Test 09/01/17 06:32 Range/Units Triglycerides Level 52 0-150 mg/dl Cholesterol Level 151 0-200 mg/dl HDL Cholesterol 51 mg/dl Cholesterol/HDL Ratio 3.0 LDL Cholesterol, Calculated 90 mg/dl Medical Emergencies . Who to Call and When: Medical Emergencies: If at any time you feel your situation is an emergency, please call 911 immediately. . Non-Emergent Contact Non-Emergency issues call your: Primary Care Provider, Hospital Doctor . . "Provider Documentation" section prepared by Kalyan Gamino. . VTE Core Measure Inpt VTE Proph given/why not?: Unfractionated heparin SQ . Additional Copies To Roe Abreu D.O.
== END 2017-09-01 17:24 | disposition home or self-care (01) ==
LOC: C.EDB 21:34 → C.2T 09-01 00:45 → ENRESERV 09-01 01:08
PROVIDERS: ADMIT Internal Medicine; ATTEND Hospitalist
DX: R07.89 Other chest pain (principal); I34.1 Nonrheumatic mitral (valve) prolapse; E78.5 Hyperlipidemia, unspecified; R03.0 Elevated blood-pressure reading, without diagnosis of hypertension; E04.1 Nontoxic single thyroid nodule; K21.9 Gastro-esophageal reflux disease without esophagitis; N40.0 Benign prostatic hyperplasia without lower urinary tract symptoms; Z79.82 Long term (current) use of aspirin; Z79.899 Other long term (current) drug therapy

== ENCOUNTER 2019-01-19 12:51 | Inpatient (IN) ==
[2019-01-19] MEDS ORDERED: SODIUM CHLORIDE 0.9% 500 ML IV STA (13:38)
[2019-01-19] MEDS ORDERED: SODIUM CHLORIDE 0.9% 1000ML 1,000 ML IV ONE (14:04)
[2019-01-19] MEDS ORDERED: ONDANSETRON INJ 2 MG/ML 2 ML VIAL IV STA (14:04)
[2019-01-19] MEDS ORDERED: HYDROmorphone INJ 0.5 MG/0.5 ML SYR IV PRN (14:04)
[2019-01-19] MEDS ORDERED: KETOROLAC TROMETHAMINE 15 MG/ML VIAL IV STA (14:04)
[2019-01-19 14:14] LABS: Hematocrit (blood only) 40.9 % (42-52); Hemoglobin 14.8 g/dL (14.0-18.0); Mean Corpuscular Hgb Conc 36.2 g/dL (32-36); Mean Corpuscular Volume 89.7 fL (80-100); Mean Platelet Volume 10.5 fL (7.4-10.4); Platelet Count 170 K/uL (130-400); RDW Coefficient of Variation 12.8 % (11.5-14.5); RDW Standard Deviation 41.6 fL (36.4-46.3); Red Blood Count 4.56 M/uL (4.7-6.1); White Blood Count 8.31 K/uL (4.8-10.8)
[2019-01-19 14:18] LABS: BUN Creatinine Ratio 9.4 (10-20); Calcium 8.8 mg/dl (8.5-10.1); Creatinine Clr Calc Pharmacy 35.7 ml/min; Est GFR (Non-African American) 33.7; Potassium 3.6 mmol/L (3.5-5.1)
[2019-01-19 15:50] LABS: Appearance Urine Clear (Clear); Bilirubin Urine Negative (Negative); Blood Urine Negative (Negative); Color Urine Dark Yellow; Glucose Urine UA Negative (Negative); Ketones Urine Negative (Negative); Leukocyte Esterase Urine Negative (Negative); Nitrite Urine Negative (Negative); Protein Urine Negative (Negative); Specific Gravity Urine 1.018 (1.000-1.030); Urobilinogen Urine Negative (Negative)
--- NOTE | 2019-01-19 16:38 | History & Physical Report ---
Date of Service January 19, 2019 Assessment & Plan (1) Ureterolithiasis: (2) Ureteral colic: This is a 68-year-old male who has a significant PMH of HLD, BPH, GERD, Barretts esophagus, migraine, JEANNINE, dysthymia who presents to [facility] secondary to persistent right lower quadrant pain x1 week. Last seen in ED 01/12 for similar pain. Dx with 4mm distal ureteral stone. Discharged with conservative management and appropriate urology follow up. Failed outpt treatment Cr elevated to 1.96 Sx improved after IV toradol and Dilaudid in ED He is afebrile, UA WNL Had follow up with urology as outpatient yesterday 01/18 in which repeat KUB confirmed persistent stone Recommendation was for outpt ESWL Spoke with Urology RECEPTIONIST NURSE who recommended observation, IV hydration and pain control. Admit under observation to med/surg IVF 125cc/hr continue flomax Strain all urine Percocet 5/325 q4hr prn mod pain/ IV morphine 4mg Q4hr Severe pain Urology consult NPO at midnight for possible procedure in a.m. ASA on hold per urology (3) RAE (acute kidney injury): baseline Cr 1.22 today 1.96 likely in setting of UVJ stone and poor po intake given nausea and pain continue IV hydration repeat bmp in a.m. (4) BPH (benign prostatic hyperplasia): continue flomax (5) GERD (gastroesophageal reflux disease): continue PPI (6) DVT prophylaxis: SCDS Disposition: D/C to home when able Follow up: PCP Dr. Abreu upon discharge Patient was seen and examined in collaboration with Dr. Joshua, please see addendum Starting 01/20/19 patient will be under the care of Dr. Rae History of Present Illness Chief Complaint: RLQ Pain. Primary Care Provider: Roe Abreu, DO This is a 68-year-old male who has a significant PMH of HLD, BPH, GERD, [place] tts esophagus, migraine, JEANNINE, dysthymia who presents to [facility] secondary to persistent right lower quadrant pain x1 week. Patient was last seen in [facility] ED on 01/12/2019 secondary to RLQ pain. He was diagnosed with nonobstructive distal right UVJ nephrolithiasis along with 3 mm nonobstructive left midpole stone. Patient was discharged with appropriate urology follow-up with conservative management. He was last seen in the urology office yesterday and saw by HANG. Underwent repeat KUB which reading revealed no nephrolithiasis; however after further review by urology the 4mm stone inferior to SI joint was still noted. Given this fact he was recommended for ESWL. This was going to be set up as outpatient; however patient unable to control pain therefore he represented back to ED. Today patient states he has continued right lower quadrant pain, waxes and wanes in severity, described as dull ache, improved with prescribed oxycodone, nothing makes worse, rated as 11/10 max pain. Currently he is pain-free after receiving analgesia in ED. He further elicits her past few days he has been nauseated and had decreased p.o. intake secondary to pain. He complains of increased urgency and frequency with urination. He denies any fever, chills, sweats, lightheadedness, dizziness, diarrhea, dysuria, hematuria, chest pain, shortness breath, palpitations. Allergies Allergy/AdvReac Type Severity Reaction Status Date / Time meloxicam Allergy Unknown . Verified 01/19/19 13:50 rofecoxib Allergy Unknown . Verified 01/19/19 13:50 Sulfa (Sulfonamide Allergy Unknown . Verified 01/19/19 13:50 Antibiotics) Home Medications Home Medications Medication Instructions Recorded Confirmed Type atorvastatin 40 mg PO DAILY 01/12/19 01/19/19 History clonazepam 0.25 mg PO HS 01/12/19 01/19/19 History docusate sodium [Colace] 100 mg PO BID #60 cap 01/12/19 01/19/19 Rx escitalopram oxalate 20 mg PO QAM 01/12/19 01/19/19 History oxycodone 5 mg PO Q6 PRN #14 tab 01/12/19 01/19/19 Rx sennosides [Senokot] 8.6 mg PO HS #30 tab 01/12/19 01/19/19 Rx tamsulosin 0.4 mg PO DAILY 01/12/19 01/19/19 History topiramate 50 mg PO BID 01/12/19 01/19/19 History amitriptyline 12.5 mg PO DAILY 01/19/19 01/19/19 History amitriptyline 37.5 mg PO HS 01/19/19 01/19/19 History aspirin [Aspir-81] 81 mg PO DAILY 01/19/19 01/19/19 History cholecalciferol (vitamin D3) 1,000 unit PO DAILY 01/19/19 01/19/19 History chondroitin sulfate A sodium 1,200 mg PO DAILY 01/19/19 01/19/19 History coenzyme Q10 [Co Q-10] 100 mg PO DAILY 01/19/19 01/19/19 History dexlansoprazole [Dexilant] 60 mg PO DAILY 01/19/19 01/19/19 History glucosamine sulfate [Glucosamine] 1,500 mg PO DAILY 01/19/19 01/19/19 History magnesium oxide 400 mg PO DAILY 01/19/19 01/19/19 History mv,Ca,aog-proh-VL-lycopene 1 tab PO DAILY 01/19/19 01/19/19 History [Spectravite Men's] omega 7-zvn-oci-fish oil [[place]-3] 1 cap PO DAILY 01/19/19 01/19/19 History riboflavin (vitamin B2) 400 mg PO DAILY 01/19/19 01/19/19 History Past Med/Surg History Medical History Kidney stones (Chronic) History of BPH (Chronic) GERD (gastroesophageal reflux disease) (Chronic) Hyperlipidemia (Chronic) Mitral valve prolapse (Chronic) Surgical History History of tonsillectomy (Chronic) History of arthroscopic knee surgery (Chronic) History of colonoscopy (Chronic) History of esophagogastroduodenoscopy (EGD) (Chronic) Family History Father Coronary heart disease, Onset Age: 50 Mother Coronary heart disease, Onset Age: 60 Social History Preferred Language: Indonesian Communication Ability: Effective Shoe Repair Cobbler Required: No Beliefs That Will Affect Care: None marital status: Current Living Situation: Spouse Other Information That Helps Us Care for You: No Feels Safe at Home: Yes Safety Concerns: Feels Safe At This Time Smoking Status: Never smoker Do You Dip or Chew Tobacco: No Second Hand Exposure: No Tobacco Cessation Education Requested by Patient: No Hx Alcohol Use: Yes Alcohol type: beer Hx Substance Use: No Review of Systems Review of Systems: As noted per HPI, 10 systems reviewed and negative unless noted above. Physical Exam Physical Exam: Gen: WD/WN, M/F, NAD, sitting up in bed, pleasant, conversing easily Head: Normocephalic, Atraumatic Eyes: Sclera normal, no conjunctival injection, PERRLA, EOMI ENT: Gross hearing intact, normal pharynx, mucous membranes moist Neck: supple, no adenopathy, No JVD, no bruit, Resp: Clear to auscultation b/l, no wheeze, rales, rhonchi. 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 medical equipment technician strength Extremities: No edema bilaterally Skin: warm, moist, no rash, negative turgor, cap refill < 2sec Neuro: Alert and oriented x 3, speech normal, good mood/affect, cran nerve 2-12 intact grossly : deferred Results & Data Vital Signs (Past 12 Hours) Vital Signs Temp Pulse Resp BP Pulse Ox 01/19/19 13:04 36.6 C 93 H 20 143/84 H 96 Laboratory Results Short CBC 01/19/19 Range/Units 13:50 WBC 8.31 (4.8-10.8) K/uL Hgb 14.8 (14.0-18.0) g/dL Hct 40.9 L (42-52) % Plt Count 170 (130-400) K/uL BMP 01/19/19 13:54 Sodium 136 Potassium 3.6 Chloride 106 Carbon Dioxide 26 BUN 18 Creatinine 1.96 H Glucose 147 H Calcium 8.8 Urine 01/19/19 Range/Units 15:18 Urine Color Dark Yellow Urine Appearance Clear (Clear) Urine pH 6.0 (4.5-7.5) Ur Specific [place] 1.018 (1.000-1.030) Urine Protein Negative (Negative) Urine Glucose (UA) Negative (Negative) Medications Administered Hydromorphone HCl (Dilaudid) 0.5 mg IV Q15M PRN PRN Reason: Pain Stop: 02/02/19 14:03 Last Admin: 01/19/19 14:33 Dose: 0.5 mg Documented by: [id number] Discontinued Medications Sodium Chloride (Nss) 500 mls @ 999 mls/hr IV .Q31M STA Stop: 01/19/19 14:08 Last Infusion: 01/19/19 14:36 Dose: 0 mls/hr Documented by: [id number] Admin: 01/19/19 13:51 Dose: 999 mls/hr Documented by: [id number] Sodium Chloride (Nss 1000ml) 1,000 mls @ 999 mls/hr IV .Q1H1M ONE Stop: 01/19/19 15:04 Last Infusion: 01/19/19 15:27 Dose: 0 mls/hr Documented by: [id number] Admin: 01/19/19 14:32 Dose: 999 mls/hr Documented by: [id number] Ketorolac Tromethamine (Toradol) 10 mg IV NOW STA Stop: 01/19/19 14:05 Last Admin: 01/19/19 14:32 Dose: 10 mg Documented by: [id number] Ondansetron HCl (Zofran) 4 mg IV NOW STA Stop: 01/19/19 14:05 Last Admin: 01/19/19 14:32 Dose: 4 mg Documented by: [id number] Code Status & VTE Plan Code Status Full Code VTE Prophylaxis Plan VTE Prophylaxis will be ordered: Yes Supervising Physician Co-Signing Physician Notes I have seen and examined the patient and have discussed the case with the provider above. I agree with the assessment and plan as stated with the following exceptions. Mr. Storey is having no pain after Toradol and IVF given in the ER. He is being admitted for ureteral colic from a kidney stone and has RAE. He appears WNWD and is mentating appropriately and in NAD. Minimal to no abdominal tenderness is present in the RLQ, the abdomen is soft and nondistended and there is no CVA tenderness. He denies fevers, chills, dysuria or hematuria. He has been on Flomax and has been straining his urine at home. He reports no NSAID use other than Excedrin migraine once this morning for a migraine, but mentioned that he has had poor PO intake in general in the last couple of days 2/2 nausea and malaise. This is the likely cause of the RAE. Cont plan as above including IVF, pain and nausea control as needed, Flomax. NPO p MN for possible procedure in am. Repeat BMP in am. DO Tres
[2019-01-19] MEDS ORDERED: ALUMINUM/MAGNESIUM SUSP 30 ML UDC PO PRN (17:20)
[2019-01-19] MEDS ORDERED: ONDANSETRON INJ 2 MG/ML 2 ML VIAL IV PRN (17:20)
[2019-01-19] MEDS ORDERED: POLYETHYLENE (MIRALAX) 17 GM PACK PO PRN (17:20)
[2019-01-19] MEDS ORDERED: MAGNESIUM HYDROXIDE SUSP 30 ML UDC PO PRN (17:20)
[2019-01-19] MEDS: SODIUM CHLORIDE 0.9% 1000ML 1,000 ML IV SCH (18:00)
[2019-01-19] MEDS: clonazePAM 0.5 MG TAB PO SCH (21:09)
[2019-01-19] MEDS: DOCUSATE SODIUM 100 MG CAP PO SCH (21:09)
[2019-01-19] MEDS: AMITRIPTYLINE HCL 25 MG TAB PO SCH (21:09)
[2019-01-19] MEDS: SENNA 8.6 MG TAB PO SCH (21:10)
[2019-01-19] MEDS: TAMSULOSIN HCL 0.4 MG CAP PO SCH (21:10)
[2019-01-19] MEDS: TOPIRAMATE 50 MG TAB PO SCH (21:11)
[2019-01-19] MEDS: OXYCODONE/ACETAMINOPHEN 5mg/325mg TAB PO PRN (21:15)
[2019-01-19] MEDS: MoRPHine SULFATE 4 MG/ML 1 ML CARP\\VIAL IV PRN (21:54)
--- NOTE | 2019-01-19 23:29 | Consultation Report ---
DATE OF CONSULTATION: 01/19/2019 REASON FOR THE CONSULT: Distal right ureteral stone. HISTORY OF PRESENTATION: The patient is a 68-year-old male who was seen on 12/23/2018 with a CAT scan showing a distal right ureteral stone. He was discharged to home on medication and was having ongoing pain, was seen yesterday in our office and was scheduled to have lithotripsy this Friday, but the patient returned with ongoing pain for admission. The patient had a KUB which suggests the stone is at the very distal aspect of the ureter. He had significant urgency and frequency which also suggest that it is at the UVJ. At the time I saw him this evening, his discomfort was under control with no significant discomfort, but he had not passed the stone and he did not have continuous urgency. He is going to be n.p.o. after midnight. The patient has passed stones in the past. He did have a slightly elevated creatinine of 1.96. He does have BPH and takes Flomax. The patient denies any hematuria or fever or vomiting, but he has had nausea. ALLERGIES: HE HAS ALLERGIES TO MELOXICAM, ROFECOXIB AND SULFA. MEDICATIONS: Include Atorvastatin 40 mg daily, clonazepam at bedtime, escitalopram oxalate 20 mg p.o. q.a.m., Senokot, tamsulosin, topiramate 50 mg p.o. b.i.d., tamsulosin 0.4 mg p.o. daily, amitriptyline 12.5 mg p.o. daily and 37.5 mg at bedtime, vitamin D3, chondroitin glucosamine, magnesium oxide, omega 3 fish oil and riboflavin. PAST MEDICAL HISTORY: Significant for kidney stones, BPH, GERD, hyperlipidemia and mitral valve prolapse. PAST SURGICAL HISTORY: Significant for tonsillectomy, arthritic knee surgery, colonoscopy, esophagogastroduodenoscopy. FAMILY HISTORY: Does have history of coronary artery disease in both his mother and father. SOCIAL HISTORY: The patient does not smoke and does drink beer. REVIEW OF SYSTEMS: Ten systems were reviewed and negative unless noted above. PHYSICAL EXAMINATION: GENERAL: The patient was not any significant distress. HEENT: Unremarkable. He is normocephalic. Eyes were normal. NECK: Supple. LUNGS: No respiratory distress. ABDOMEN: Benign with no flank pain. MUSCULOSKELETAL: Unremarkable. EXTREMITIES: Normal without pedal edema bilaterally. SKIN: Warm and moist without any abnormalities. NEUROLOGIC: He is alert and oriented without any focal or sensory deficit. GENITOURINARY: Deferred. White blood cell count normal. Urine was negative. ASSESSMENT: Distal stone. The patient may have passed the stone, he is not having ongoing pain, has been made n.p.o., will be reassessed in the morning with a KUB. If he passes the stone overnight, he will be discharged. DHARA
[2019-01-20] MEDS: SODIUM CHLORIDE 0.9% 1000ML 1,000 ML IV SCH ×3 (00:55→16:38)
[2019-01-20] MEDS: MoRPHine SULFATE 4 MG/ML 1 ML CARP\\VIAL IV PRN (02:08)
[2019-01-20] MEDS: OXYCODONE/ACETAMINOPHEN 5mg/325mg TAB PO PRN (03:33)
[2019-01-20 06:54] LABS: Hematocrit (blood only) 38.2 % (42-52); Hemoglobin 13.2 g/dL (14.0-18.0); Mean Corpuscular Hgb Conc 34.6 g/dL (32-36); Mean Corpuscular Volume 91.6 fL (80-100); Mean Platelet Volume 10.3 fL (7.4-10.4); Platelet Count 144 K/uL (130-400); RDW Coefficient of Variation 13.2 % (11.5-14.5); RDW Standard Deviation 43.8 fL (36.4-46.3); Red Blood Count 4.17 M/uL (4.7-6.1); White Blood Count 8.23 K/uL (4.8-10.8)
[2019-01-20 07:29] LABS: BUN Creatinine Ratio 9.6 (10-20); Calcium 7.7 mg/dl (8.5-10.1); Creatinine Clr Calc Pharmacy 41.7 ml/min; Est GFR (African American) 46.7; Est GFR (Non-African American) 40.3; Potassium 3.9 mmol/L (3.5-5.1)
[2019-01-20] MEDS: ACETAMINOPHEN 325 MG TAB PO PRN ×2 (08:32→20:45)
[2019-01-20] MEDS: DOCUSATE SODIUM 100 MG CAP PO SCH ×2 (08:39→20:44)
[2019-01-20] MEDS: MAGNESIUM OXIDE 400 MG TAB PO SCH (08:39)
[2019-01-20] MEDS: ESCITALOPRAM OXALATE 20 MG TAB PO SCH (08:39)
[2019-01-20] MEDS: TOPIRAMATE 50 MG TAB PO SCH ×2 (08:39→20:46)
[2019-01-20] MEDS: PANTOprazole 40 MG TAB PO SCH (08:39)
[2019-01-20] MEDS: ATORVASTATIN 40 MG TAB PO SCH (08:40)
[2019-01-20] MEDS: AMITRIPTYLINE HCL 25 MG TAB PO SCH ×2 (08:41→20:47)
--- NOTE | 2019-01-20 08:42 | XRay Report ---
KUB CLINICAL HISTORY: R distal ureteral stone COMPARISON STUDY: CT of the abdomen and pelvis January 12, 2019. KUB January 18, 2019. FINDINGS: The bowel gas pattern is normal. The left renal calculus shown on CT of January 12, 2019 is n ot visualized, likely obscured by stool. The right ureteral calculus shown on exam is not visualized. Pelvic calcifications represent phleboliths. IMPRESSION: No urinary calculi identified. Right ureteral calculus shown on CT of January 12, 2019 not visualized. Electronically signed by: Eleazar Cavanaugh M.D. 01/20/2019 8:41 AM
[2019-01-20] MEDS ORDERED: NON-FORMULARY MEDICATION (Riboflavin (Vitamin B2) 400 MG) PO SCH (09:00)
[2019-01-20] MEDS ORDERED: NON-FORMULARY MEDICATION (Coenzyme Q10 [Co Q-10] 100 MG) PO SCH (09:00)
[2019-01-20] MEDS ORDERED: TAMSULOSIN HCL 0.4 MG CAP PO SCH (09:00)
--- NOTE | 2019-01-20 09:35 | Urology Progress Note ---
Date of Service January 20, 2019 Assessment & Plan (1) Ureteral colic: 68yo M with 4mm R UVJ stone. KUB suggests stone still visible. Cr improving but still elevated. Question of whether ureteral stent is warranted for RAE. Will check Renal US now, if still with significant hydro will lean towards stenting tonight. If hydro improving, may allow diet and reevaluate in AM. ELKIN - stone still visible at UVJ, mild hydro. Patient agreeable to monitor today, continue IVFs. NO surgical intervention today. Repeat KUB and NPO at HI. Tentatively still on schedule for outpatient lithotripsy on ESWL on Friday. However if Cr still elevated, may need to move forward with ureteral stent tomorrow. Pt verbalizes understanding of treatment plan. Subjective 68yo M known 4-5mm R UVJ stone, mild hydro. Flank pain improved today. Now with migraine. Denies n/v/f/c. labs reviewed -Cr improved from 1.9 to 1.69 with hydration but still elevated. Straining -has not passed stone. KUB suggests stone may still be present. Review of Systems Review of Systems: All systems reviewed & are unremarkable except as noted in HPI & below Physical Exam Physical Exam: A&Ox3 RRR abd soft, nontender no edema Results & Data Vital Signs (Past 12 Hours) Vital Signs Temp Pulse Resp BP Pulse Ox 01/20/19 08:00 36.8 C 80 14 134/82 01/19/19 23:10 37.1 C 83 18 118/71 92
--- NOTE | 2019-01-20 09:58 | Ultrasound Report ---
ULTRASOUND KIDNEYS AND BLADDER CLINICAL HISTORY: Nephrolithiasis. COMPARISON STUDY: Abdominal CT dated 01/12/2019. KUB dated 01/20/2019. TECHNIQUE: Real-time, grayscale, and color flow sonography of the kidneys and bladder is performed. I mages are reviewed in the transverse and longitudinal planes. FINDINGS: Kidneys: The kidneys are normal in size and echotexture. The right kidney measures 10.6 x 5.7 x 5.9 c m and the left kidney measures 10.3 x 5.8 x 5.4 cm. There is mild right-sided hydronephrosis. No hydr onephrosis is seen on the left. There is a 3 mm nonobstructing left renal calculus. There is no sonog raphic evidence of contour deforming renal mass lesion. No perinephric fluid is identified. Bladder: The bladder is normal in appearance. A 5 mm shadowing calculus is identified at the right ve sicoureteral junction. Only a left ureteral jet was seen. IMPRESSION: 1. The kidneys are normal in size. 2. There is a 5 mm obstructing calculus at the right vesicoureteral junction. This causes mild right- sided hydronephrosis. 3. A small nonobstructing calculus is seen in the left kidney. Electronically signed by: Hugo Brownlee M.D. 01/20/2019 9:56 AM
[2019-01-20] MEDS ORDERED: LACTULOSE SYRUP 30 GM/45 ML UDP PO STA (10:10)
--- NOTE | 2019-01-20 15:41 | Hospitalist Progress Note ---
Date of Service January 20, 2019 Assessment & Plan (1) Ureterolithiasis: This is a 68-year-old male who has a significant PMH of HLD, BPH, GERD, Barretts esophagus, migraine, JEANNINE, dysthymia who presents to [facility] secondary to persistent right lower quadrant pain x1 week. Last seen in ED 01/12 for similar pain. Dx with 4mm distal ureteral stone. Discharged with conservative management and appropriate urology follow up Had follow up with urology as outpatient 01/18/19 in which repeat KUB confirmed persistent stone Failed outpt treatment; Cr elevated to 1.96 Patient had IV fluids, tamsulosin, urology evaluations from 01/19/19 to currently Percocet 5/325 q4hr prn mod pain/ IV morphine 4mg Q4hr Severe pain ASA on hold per urology -renal ultrasound on 01/20/19 IMPRESSION: 1. The kidneys are normal in size. 2. There is a 5 mm obstructing calculus at the right vesicoureteral junction. This causes mild right-sided hydronephrosis. 3. A small nonobstructing calculus is seen in the left kidney -no acute urology interventions on 01/20/19 and patient NPO after midnight for fu rther assessment (2) Ureteral colic: Ureteral colic secondary to ureterolithiasis -management as above Nonintractable episodic headache -on pain medications as above (3) RAE (acute kidney injury): baseline Cr 1.22 on initial presentation creatinine is 1.96 on IV fluids and creatinine downtrended to 1.69 continue IV fluids (4) BPH (benign prostatic hyperplasia): continue flomax (5) GERD (gastroesophageal reflux disease): continue PPI (6) DVT prophylaxis: SCDS Subjective Patient generally comfortable today. No severe abdomen pain. No severe flank pain. no vomiting. no fever. no chest pain. no shortness of breath. no lightheadedness. reported some headache earlier today Physical Exam Constitutional: WD/WN, vitals as above Eyes: PERRL, conjunctivae normal, anicteric sclerae EOM intact bilaterally ENMT: external ear and nose normal, oropharynx normal Neck: trachea midline, no thyromegaly Respiratory: normal respiratory effort, lungs clear to auscultation Cardiovascular: RRR, no murmur, no edema Gastrointestinal (Abdomen): normal bowel sounds, soft, nontender, no hepatosplenomegaly Musculoskeletal: no cyanosis or clubbing, extremities motor strength 5/5 Head/Neck/Chest: normocephalic and head atraumatic Neurologic: PERRL, EOMI, accommodation nl, no face palsy, no dysarthria CN's II-XI intact bilaterally Psychiatric: A+Ox3, euthymic affect Results & Data Vital Signs (Past 12 Hours) Vital Signs Temp Pulse Pulse Resp BP Pulse Ox 01/20/19 12:00 36.8 C 72 14 122/74 95 01/20/19 08:00 36.8 C 80 14 134/82
[2019-01-20] MEDS: SENNA 8.6 MG TAB PO SCH (20:44)
[2019-01-20] MEDS: clonazePAM 0.5 MG TAB PO SCH (20:45)
[2019-01-20] MEDS: TAMSULOSIN HCL 0.4 MG CAP PO SCH (20:46)
[2019-01-21] MEDS: SODIUM CHLORIDE 0.9% 1000ML 1,000 ML IV SCH ×2 (00:21→06:59)
[2019-01-21 06:57] VITALS: TEMP 98.1; O2SAT 93
--- NOTE | 2019-01-21 08:00 | Emergency Department Note ---
Entered by Pia Miller acting as a scribe for Leslye Barton DO History of Present Illness General Chief complaint: Kidney Stone Stated complaint: KIDNEY STONES Time Seen by Provider: 01/19/19 14:00 Source: patient Mode of arrival: ambulatory Limitations: no limitations History of Present Illness Provider complaint: Kidney stone Onset (ago): week(s) 1 Location: abdomen Radiation: back Severity: moderate Pain Consistency: + constant Maximum Pain Intensity: 4 Associated symptoms: + denies other symptoms and + nausea/vomiting (+nausea, - vomiting,); no fever/chills and no headaches Treatments prior to arrival: other (10mg Oxycodone) Patient is a 68 year old male presenting to the ED with kidney stone beginning x1 week ago. Patient shares that he was seen in the ED upon onset and was diagnosed with 4.1mm stone. He states that he followed up with Arlyn Dickey at Dr. Samuel urology office, which noticed the kidney stone was moved to the lower right ureter. Patient includes his pain is in the RLQ radiating to the right flank, noting it is moderate in severity and worsened last night. He shares he has been using oxycodone for the pain, last using 10mg x3 hours ago. Patient al so includes he was trying to increase his fluid intake to help pass the stone, but was unable to due to nausea. He shares that Arlyn Dickey at Dr. Samuel office recommended patient have lithotripsy in x3 days if stone did not pass. He also includes that he has not been given nausea medication during initial diagnosis. Patient includes he has been on Flomax for a while prior to kidney stone diagnosis. He includes that he is on Dexilant for stomach troubles with prolonged Ibuprofen use. Patient notes that he has been able to pass all his stones in the past. He denies any urinary sx, vomiting, diarrhea, headache, fevers, chills, or any other complaints or concerns at this time. He denies blood thinner use. Home Medications Home Medications Medication Instructions Recorded Confirmed Type atorvastatin 40 mg PO DAILY 01/12/19 01/19/19 History clonazepam 0.25 mg PO HS 01/12/19 01/19/19 History docusate sodium [Colace] 100 mg PO BID #60 cap 01/12/19 01/19/19 Rx escitalopram oxalate 20 mg PO QAM 01/12/19 01/19/19 History oxycodone 5 mg PO Q6 PRN #14 tab 01/12/19 01/19/19 Rx sennosides [Senokot] 8.6 mg PO HS #30 tab 01/12/19 01/19/19 Rx tamsulosin 0.4 mg PO DAILY 01/12/19 01/19/19 History topiramate 50 mg PO BID 01/12/19 01/19/19 History amitriptyline 12.5 mg PO DAILY 01/19/19 01/19/19 History amitriptyline 37.5 mg PO HS 01/19/19 01/19/19 History aspirin [Aspir-81] 81 mg PO DAILY 01/19/19 01/19/19 History cholecalciferol (vitamin D3) 1,000 unit PO DAILY 01/19/19 01/19/19 History chondroitin sulfate A sodium 1,200 mg PO DAILY 01/19/19 01/19/19 History coenzyme Q10 [Co Q-10] 100 mg PO DAILY 01/19/19 01/19/19 History dexlansoprazole [Dexilant] 60 mg PO DAILY 01/19/19 01/19/19 History glucosamine sulfate [Glucosamine] 1,500 mg PO DAILY 01/19/19 01/19/19 History magnesium oxide 400 mg PO DAILY 01/19/19 01/19/19 History mv,Ca,qkf-qrtj-EZ-lycopene 1 tab PO DAILY 01/19/19 01/19/19 History [Spectravite Men's] omega 3-hrv-sbu-fish oil [[place]-3] 1 cap PO DAILY 01/19/19 01/19/19 History riboflavin (vitamin B2) 400 mg PO DAILY 01/19/19 01/19/19 History Allergies Allergy/AdvReac Type Severity Reaction Status Date / Time meloxicam Allergy Unknown . Verified 01/19/19 13:50 rofecoxib Allergy Unknown . Verified 01/19/19 13:50 Sulfa (Sulfonamide Allergy Unknown . Verified 01/19/19 13:50 Antibiotics) Past Med/Surg History Medical History Kidney stones (Chronic) History of BPH (Chronic) GERD (gastroesophageal reflux disease) (Chronic) Hyperlipidemia (Chronic) Mitral valve prolapse (Chronic) Surgical History History of tonsillectomy (Chronic) History of arthroscopic knee surgery (Chronic) History of colonoscopy (Chronic) History of esophagogastroduodenoscopy (EGD) (Chronic) Family History Father Coronary heart disease, Onset Age: 50 Mother Coronary heart disease, Onset Age: 60 Social History Preferred Language: Nepali Communication Ability: Effective Station Superintendent Required: No Beliefs That Will Affect Care: None marital status: Current Living Situation: Spouse Other Information That Helps Us Care for You: No Feels Safe at Home: Yes Safety Concerns: Feels Safe At This Time Smoking Status: Never smoker Do You Dip or Chew Tobacco: No Second Hand Exposure: No Tobacco Cessation Education Requested by Patient: No Hx Alcohol Use: Yes Alcohol type: beer Hx Substance Use: No Review of Systems See HPI for pertinent positives & negatives. and A total of 10 systems reviewed and were otherwise negative Physical Exam Vital Signs Vital Signs - 24 hr 01/20/19 08:15 01/20/19 12:00 01/20/19 15:46 Temperature 36.8 C 36.5 C Temperature Source Oral Oral Pulse Rate [Apical] 72 Pulse Rate [Left Finger] Pulse Rate [Right Finger] 76 Pulse Rhythm [Apical] Regular Pulse Strength [Apical] Normal Respiratory Rate 14 18 Respiratory Effort / Characteristics Non-Labored Non-Labored Respiratory Depth Normal Normal Respiratory Pattern Regular Regular Blood Pressure [Left Arm] 122/74 135/80 Blood Pressure [Right Arm] Blood Pressure Mean [Left Arm] 90 98 Blood Pressure Mean [Right Arm] Blood Pressure Position [Left Arm] Lying Lying Pulse Oximetry 95 95 Oxygen Delivery Method Room Air Room Air Room Air 01/20/19 23:05 01/21/19 06:55 Temperature 37.1 C 36.7 C Temperature Source Oral Oral Pulse Rate [Apical] Pulse Rate [Left Finger] 80 67 Pulse Rate [Right Finger] Pulse Rhythm [Apical] Pulse Strength [Apical] Respiratory Rate 16 18 Respiratory Effort / Characteristics Respiratory Depth Respiratory Pattern Blood Pressure [Left Arm] 138/52 L Blood Pressure [Right Arm] 123/74 Blood Pressure Mean [Left Arm] 80 Blood Pressure Mean [Right Arm] 90 Blood Pressure Position [Left Arm] Lying Pulse Oximetry 94 93 Oxygen Delivery Method Room Air Room Air GENERAL: alert, uncomfortable appearing, well nourished, no distress, non-toxic EYE EXAM: normal conjunctiva, PERRL and EOM's grossly intact OROPHARYNX: no exudate, no erythema, lips, buccal mucosa, and tongue normal and mucous membranes are mildly dry NECK: supple, no nuchal rigidity, no adenopathy, non-tender LUNGS: Clear to auscultation. Normal chest wall mechanics, no w/r/r HEART: no murmurs, S1 normal and S2 normal ABDOMEN: abdomen soft, non-tender, normo-active bowel sounds, no masses, no rebound or guarding. BACK: Back is symmetrical on inspection and there is no deformity, no midline tenderness, no CVA tenderness. SKIN: no rashes and no bruising UPPER EXTREMITIES: upper extremities are grossly normal. FROM, nml pulses b/l. LOWER EXTREMITIES: No pitting edema. FROM, nml pulses b/l. NEURO EXAM: Normal sensorium, cranial nerves II-XII grossly intact, normal sp eech, no gross weakness of arms, no gross weakness of legs. Course 1403: Patient was evaluated in room A03. A full history and physical examination were obtained. 1535: Discussed case with Arlyn Marquez, Urology [facility] who recommends patient be admitted. 1538: Updated patient on results and plan for admission. Patient is agreeable to plan. 1543: Discussed case with Dee Dee Barnard PA-C, who accepts patient for admission. Administered Medications Acetaminophen (Tylenol) 650 mg PO Q4H PRN PRN Reason: pain/fever Stop: 02/18/19 17:19 Last Admin: 01/20/19 20:45 Dose: 650 mg Documented by: [id number] Admin: 01/20/19 08:32 Dose: 650 mg Documented by: [id number] Amitriptyline HCl (Elavil) 12.5 mg PO DAILY JUAN DAVID Stop: 02/19/19 08:59 Last Admin: 01/20/19 08:41 Dose: 12.5 mg Documented by: [id number] Amitriptyline HCl (Elavil) 37.5 mg PO HS JUAN DAVID Stop: 02/18/19 20:59 Last Admin: 01/20/19 20:47 Dose: 37.5 mg Documented by: [id number] Admin: 01/19/19 21:09 Dose: 37.5 mg Documented by: [id number] Atorvastatin Calcium (Lipitor) 40 mg PO DAILY JUAN DAVID Stop: 02/19/19 08:59 Last Admin: 01/20/19 08:40 Dose: 40 mg Documented by: [id number] Clonazepam (Klonopin) 0.25 mg PO HS JUAN DAVID Stop: 02/18/19 20:59 Last Admin: 01/20/19 20:45 Dose: 0.25 mg Documented by: [id number] Admin: 01/19/19 21:09 Dose: 0.25 mg Documented by: [id number] Docusate Sodium (Colace) 100 mg PO BID JUAN DAVID Stop: 02/18/19 20:59 Last Admin: 01/20/19 20:44 Dose: Not Given Documented by: [id number] Admin: 01/20/19 08:39 Dose: 100 mg Documented by: [id number] Admin: 01/19/19 21:09 Dose: 100 mg Documented by: [id number] Escitalopram Oxalate (Lexapro) 20 mg PO QAM JUAN DAVID Stop: 02/19/19 08:59 Last Admin: 01/20/19 08:39 Dose: 20 mg Documented by: [id number] Sodium Chloride (Nss 1000ml) 1,000 mls @ 125 mls/hr IV .Q8H JUAN DAVID Stop: 02/18/19 17:19 Last Admin: 01/21/19 06:59 Dose: 125 mls/hr Documented by: [id number] Infusion: 01/21/19 06:59 Dose: 125 mls/hr Documented by: [id number] Infusion: 01/21/19 05:11 Dose: 125 mls/hr Documented by: [id number] Admin: 01/21/19 00:21 Dose: 125 mls/hr Documented by: [id number] Infusion: 01/21/19 00:21 Dose: 125 mls/hr Documented by: [id number] Admin: 01/20/19 16:38 Dose: 125 mls/hr Documented by: [id number] Infusion: 01/20/19 16:38 Dose: 125 mls/hr Documented by: [id number] Infusion: 01/20/19 15:00 Dose: 125 mls/hr Documented by: [id number] Admin: 01/20/19 08:55 Dose: 125 mls/hr Documented by: [id number] Infusion: 01/20/19 08:55 Dose: 125 mls/hr Documented by: [id number] Infusion: 01/20/19 07:16 Dose: 125 mls/hr Documented by: [id number] Admin: 01/20/19 00:55 Dose: 125 mls/hr Documented by: [id number] Infusion: 01/20/19 00:55 Dose: 125 mls/hr Documented by: [id number] Admin: 01/19/19 18:00 Dose: 125 mls/hr Documented by: [id number] Magnesium Oxide (Mag-Ox) 400 mg PO DAILY JUAN DAVID Stop: 02/19/19 08:59 Last Admin: 01/20/19 08:39 Dose: 400 mg Documented by: [id number] Morphine Sulfate (Morphine Sulfate) 4 mg IV Q4H PRN PRN Reason: Severe Pain Stop: 02/02/19 17:19 Last Admin: 01/20/19 02:08 Dose: 4 mg Documented by: [id number] Admin: 01/19/19 21:54 Dose: 4 mg Documented by: [id number] Ondansetron HCl (Zofran) 4 mg IV Q6H PRN PRN Reason: Nausea Stop: 02/18/19 17:19 Last Admin: 01/20/19 08:44 Dose: 4 mg Documented by: [id number] Oxycodone/Acetaminophen (Percocet 5mg/325mg) 1 tab PO Q4H PRN PRN Reason: Moderate Pain Stop: 02/02/19 17:19 Last Admin: 01/20/19 03:33 Dose: 1 tab Documented by: [id number] Admin: 01/19/19 21:15 Dose: 1 tab Documented by: [id number] Pantoprazole Sodium (Protonix) 40 mg PO DAILY JUAN DAVID Stop: 02/19/19 08:59 Last Admin: 01/20/19 08:39 Dose: 40 mg Documented by: [id number] Sennosides (Senokot) 8.6 mg PO HS [facility] Stop: 02/18/19 20:59 Last Admin: 01/20/19 20:44 Dose: Not Given Documented by: [id number] Admin: 01/19/19 21:10 Dose: 8.6 mg Documented by: [id number] Tamsulosin HCl (Flomax) 0.4 mg PO [facility] Stop: 02/18/19 20:59 Last Admin: 01/20/19 20:46 Dose: 0.4 mg Documented by: [id number] Admin: 01/19/19 21:10 Dose: 0.4 mg Documented by: [id number] Topiramate (Topamax) 100 mg PO [facility] Stop: 02/18/19 20:59 Last Admin: 01/20/19 20:46 Dose: 100 mg Documented by: [id number] Admin: 01/19/19 21:11 Dose: 100 mg Documented by: [id number] Topiramate (Topamax) 50 mg PO [facility] Stop: 02/19/19 08:59 Last Admin: 01/20/19 08:39 Dose: 50 mg Documented by: [id number] Discontinued Medications Hydromorphone HCl (Dilaudid) 0.5 mg IV Q15M PRN PRN Reason: Pain Stop: 02/02/19 14:03 Last Admin: 01/19/19 14:33 Dose: 0.5 mg Documented by: [id number] Sodium Chloride (Nss) 500 mls @ 999 mls/hr IV .Q31M STA Stop: 01/19/19 14:08 Last Infusion: 01/19/19 14:36 Dose: 0 mls/hr Documented by: [id number] Admin: 01/19/19 13:51 Dose: 999 mls/hr Documented by: [id number] Sodium Chloride (Nss 1000ml) 1,000 mls @ 999 mls/hr IV .Q1H1M ONE Stop: 01/19/19 15:04 Last Infusion: 01/19/19 15:27 Dose: 0 mls/hr Documented by: [id number] Admin: 01/19/19 14:32 Dose: 999 mls/hr Documented by: [id number] Ketorolac Tromethamine (Toradol) 10 mg IV NOW STA Stop: 01/19/19 14:05 Last Admin: 01/19/19 14:32 Dose: 10 mg Documented by: [id number] Lactulose (Chronulac) 30 gm PO NOW STA Stop: 01/20/19 10:11 Last Admin: 01/20/19 11:26 Dose: 30 gm Documented by: [id number] Ondansetron HCl (Zofran) 4 mg IV NOW STA Stop: 01/19/19 14:05 Last Admin: 01/19/19 14:32 Dose: 4 mg Documented by: [id number] Medical Decision Making Differential Diagnosis Differential diagnosis: Etiologies such as renal colic, appendicitis, diverticulitis, mesenteric ischemia, aortic pathology, infections, inflammatory bowel disease, PUD, biliary pathology, UTI, as well as others were entertained. Medical Records Attestation: I reviewed the patient's medical records. Home Medications Current Medication List: was personally reviewed by me Laboratory Data Attestation: I reviewed the patient's lab results. Result diagrams: 01/20/19 06:32 01/20/19 06:32 Lab Results 01/19/19 01/19/19 01/19/19 Range/Units 13:50 13:54 15:18 WBC 8.31 (4.8-10.8) K/uL RBC 4.56 L (4.7-6.1) M/uL Hgb 14.8 (14.0-18.0) g/dL Hct 40.9 L (42-52) % MCV 89.7 (80-100) fL MCH 32.5 (25-34) pg MCHC 36.2 H (32-36) g/dL RDW Std Deviation 41.6 (36.4-46.3) fL RDW Coeff of Jamir 12.8 (11.5-14.5) % Plt Count 170 (130-400) K/uL MPV 10.5 H (7.4-10.4) fL Sodium 136 (136-145) mmol/L Potassium 3.6 (3.5-5.1) mmol/L Chloride 106 (98-107) mmol/L Carbon Dioxide 26 (21-32) mmol/L Anion Gap 4.0 (3-11) BUN 18 (7-18) mg/dl Creatinine 1.96 H (0.6-1.4) mg/dl Est Cr Clr Drug Dosing 35.7 ml/min Est GFR ( Amer) 39.0 Est GFR (Non-Af Amer) 33.7 BUN/Creatinine Ratio 9.4 L (10-20) Glucose 147 H (70-99) mg/dl Calcium 8.8 (8.5-10.1) mg/dl Urine Color Dark Yellow Urine Appearance Clear (Clear) Urine pH 6.0 (4.5-7.5) Ur Specific [place] 1.018 (1.000-1.030) Urine Protein Negative (Negative) Urine Glucose (UA) Negative (Negative) Urine Ketones Negative (Negative) Urine Blood Negative (Negative) Urine Nitrite Negative (Negative) Urine Bilirubin Negative (Negative) Urine Urobilinogen Negative (Negative) Ur Leukocyte Esterase Negative (Negative) 01/20/19 01/20/19 Range/Units 06:32 06:32 WBC 8.23 (4.8-10.8) K/uL RBC 4.17 L (4.7-6.1) M/uL Hgb 13.2 L (14.0-18.0) g/dL Hct 38.2 L (42-52) % MCV 91.6 (80-100) fL MCH 31.7 (25-34) pg MCHC 34.6 (32-36) g/dL RDW Std Deviation 43.8 (36.4-46.3) fL RDW Coeff of Jamir 13.2 (11.5-14.5) % Plt Count 144 (130-400) K/uL MPV 10.3 (7.4-10.4) fL Sodium 139 (136-145) mmol/L Potassium 3.9 (3.5-5.1) mmol/L Chloride 111 H (98-107) mmol/L Carbon Dioxide 26 (21-32) mmol/L Anion Gap 2.0 L (3-11) BUN 16 (7-18) mg/dl Creatinine 1.69 H (0.6-1.4) mg/dl Est Cr Clr Drug Dosing 41.7 ml/min Est GFR ( Amer) 46.7 Est GFR (Non-Af Amer) 40.3 BUN/Creatinine Ratio 9.6 L (10-20) Glucose 99 (70-99) mg/dl Calcium 7.7 L (8.5-10.1) mg/dl Urine Color Urine Appearance (Clear) Urine pH (4.5-7.5) Ur Specific [place] (1.000-1.030) Urine Protein (Negative) Urine Glucose (UA) (Negative) Urine Ketones (Negative) Urine Blood (Negative) Urine Nitrite (Negative) Urine Bilirubin (Negative) Urine Urobilinogen (Negative) Ur Leukocyte Esterase (Negative) Blood Pressure Blood Pressure Findings: Elevated blood pressure Blood Pressure Disposition: further management by hospitalist MDM Narrative Patient well-appearing here despite complaints. Patient markedly improved after additional medications and IV fluids here. Given concern for worsening renal function, case discussed with urology. They agree with plan for inpatient treatment given concern for renal function as well as failed outpatient management with the pain medication and Flomax he was taking at home. Patient made aware of all results and was in agreement with plan. No evidence of bacteremia/sepsis. Patient hemodynamically stable throughout. I do not suspect other acute pathology contributing to pain given known renal stone seen on CAT scan 1 week prior. Impression & Plan Renal colic, Ureterolithiasis, RAE (acute kidney injury) Discharge Plan Visit Data *Final* Discharge Date/Time: 01/19/19 16:59 Chief Complaint: Kidney Stone Stated Complaint: KIDNEY STONES ED Provider: Leslye Barton Discharge Problem: Renal colic, Ureterolithiasis, RAE (acute kidney injury) Patient Disposition: Admitted As Inpatient Condition: Good Discharge Instructions Interventions: ED Discharge Assessment Last Done: 01/19/19 16:59 The scribe's documentation has been prepared under my direction and personally reviewed by me in its entirety. I confirm that the note above accurately reflects all work, treatment, procedures, and medical decision making performed by me.
--- NOTE | 2019-01-21 08:05 | XRay Report ---
XR KUB/Abdomen 1 view CLINICAL HISTORY: distal stone nephrocalcinosis COMPARISON STUDY: 01/20/2019 FINDINGS: The soft tissues, psoas shadows, renal outlines and intestinal gas pattern appear normal. T here is no evidence for bowel obstruction. No abnormal abdominal calcifications are seen. IMPRESSION: Normal study. No change from the prior exam. The above report was generated using voice recognition software. It may contain grammatical, syntax or spelling errors. Electronically signed by: Derek Yañez M.D. 01/21/2019 8:04 AM
[2019-01-21 08:40] LABS: BUN Creatinine Ratio 12.2 (10-20); Calcium 7.8 mg/dl (8.5-10.1); Creatinine Clr Calc Pharmacy 78.2 ml/min; Est GFR (African American) 99.9; Est GFR (Non-African American) 86.2; Magnesium 2.2 mg/dl (1.8-2.4); Potassium 3.6 mmol/L (3.5-5.1)
--- NOTE | 2019-01-21 08:54 | Urology Progress Note ---
Date of Service January 21, 2019 Assessment & Plan (1) Ureteral colic: 68yo M with 4mm distal R ureteral stone. Pt feeling well this AM. Denies any pain, completely asymptomatic. Repeat KUB today demonstrates no visible stone, images reviewed and compared to previous. However, stone has not collected, however could have occurred during episode of diarrhea last evening. Awaiting Cr level to direct next steps. If creatinine stabilized, okay to send home today. If Cr level still elevated, we will need to proceed with ureteral stent today. Keep NPO until labs available. UPDATE: Creatinine this AM has normalized. Pt remains asymptomatic and is very interested in discharge. Plan discussed with Dr. Moy and Dr. Hernandez. Okay to discharge home with pain control and flomax from our perspective. Providing diet. If patient develops pain over the weekend, he is to call our office on Friday morning. ER if fever returns. Subjective 68 yo M with 4mm distal R ureteral stone. Pt feeling very well this morning, feels back to "normal". Reading a paper, also states his migraine has resolved. Denies any pain. Denies n/v/f/c. Voiding without difficulty. Denies urgency/frequency. Denies hematuria or dysuria. VSS, afebrile. Has been straining consistently except during one bout of diarrhea yesterday. He offers no complaints. Review of Systems Review of Systems: All systems reviewed & are unremarkable except as noted in HPI & below Physical Exam Physical Exam: A&Ox3 RRR abd soft, nontender no edema Results & Data Vital Signs (Past 12 Hours) Vital Signs Temp Pulse Resp BP BP Pulse Ox 01/21/19 06:55 36.7 C 67 18 123/74 93 01/20/19 23:05 37.1 C 80 16 138/52 L 94 Laboratory Results Laboratory Results - last 48 hr 01/19/19 01/19/19 01/19/19 13:50 13:54 15:18 WBC 8.31 RBC 4.56 L Hgb 14.8 Hct 40.9 L MCV 89.7 MCH 32.5 MCHC 36.2 H RDW Std Deviation 41.6 RDW Coeff of Jamir 12.8 Plt Count 170 MPV 10.5 H Sodium 136 Potassium 3.6 Chloride 106 Carbon Dioxide 26 Anion Gap 4.0 BUN 18 Creatinine 1.96 H Est Cr Clr Drug Dosing 35.7 Est GFR ( Amer) 39.0 Est GFR (Non-Af Amer) 33.7 BUN/Creatinine Ratio 9.4 L Glucose 147 H Calcium 8.8 Magnesium Urine Color Dark Yellow Urine Appearance Clear Urine pH 6.0 Ur Specific [place] 1.018 Urine Protein Negative Urine Glucose (UA) Negative Urine Ketones Negative Urine Blood Negative Urine Nitrite Negative Urine Bilirubin Negative Urine Urobilinogen Negative Ur Leukocyte Esterase Negative 01/20/19 01/20/19 01/21/19 06:32 06:32 07:35 WBC 8.23 RBC 4.17 L Hgb 13.2 L Hct 38.2 L MCV 91.6 MCH 31.7 MCHC 34.6 RDW Std Deviation 43.8 RDW Coeff of Jamir 13.2 Plt Count 144 MPV 10.3 Sodium 139 143 Potassium 3.9 3.6 Chloride 111 H 114 H Carbon Dioxide 26 22 Anion Gap 2.0 L 7.0 BUN 16 11 Creatinine 1.69 H 0.90 D Est Cr Clr Drug Dosing 41.7 78.2 Est GFR ( Amer) 46.7 99.9 Est GFR (Non-Af Amer) 40.3 86.2 BUN/Creatinine Ratio 9.6 L 12.2 Glucose 99 75 Calcium 7.7 L 7.8 L Magnesium 2.2 Urine Color Urine Appearance Urine pH Ur Specific [place] Urine Protein Urine Glucose (UA) Urine Ketones Urine Blood Urine Nitrite Urine Bilirubin Urine Urobilinogen Ur Leukocyte Esterase
[2019-01-21] MEDS: TOPIRAMATE 50 MG TAB PO SCH (10:19)
[2019-01-21] MEDS: ESCITALOPRAM OXALATE 20 MG TAB PO SCH (10:20)
[2019-01-21] MEDS: PANTOprazole 40 MG TAB PO SCH (10:20)
[2019-01-21] MEDS: ATORVASTATIN 40 MG TAB PO SCH (10:20)
[2019-01-21] MEDS: AMITRIPTYLINE HCL 25 MG TAB PO SCH (10:20)
[2019-01-21] MEDS: MAGNESIUM OXIDE 400 MG TAB PO SCH (10:20)
[2019-01-21] MEDS: DOCUSATE SODIUM 100 MG CAP PO SCH (10:21)
--- NOTE | 2019-01-21 10:27 | Hospitalist Progress Note ---
Date of Service January 21, 2019 Assessment & Plan (1) Ureterolithiasis: This is a 68-year-old male who has a significant PMH of HLD, BPH, GERD, Barretts esophagus, migraine, JEANNINE, dysthymia who presents to [facility] secondary to persistent right lower quadrant pain x1 week. Last seen in ED 01/12 for similar pain. Dx with 4mm distal ureteral stone. Discharged with conservative management and appropriate urology follow up Had follow up with urology as outpatient 01/18/19 in which repeat KUB confirmed persistent stone Failed outpt treatment; Cr elevated to 1.96 Patient had IV fluids, tamsulosin, urology evaluations, pain controlled with narcotic pain medications -renal ultrasound on 01/20/19 IMPRESSION: 1. The kidneys are normal in size. 2. There is a 5 mm obstructing calculus at the right vesicoureteral junction. This causes mild right-sided hydronephrosis. 3. A small nonobstructing calculus is seen in the left kidney -no acute urology interventions on 01/20/19 and patient NPO after midnight for further assessment KUB on 01/21/19 does not show any stone; presumably the stone has passed or perhaps the stone persists and not visible on KUB; [facility] urology service not doing cystoscopy at this time and recommends outpatient follow up Discharge Instructions Discharge to home Patient to be discharged with prescription of tamsulosin [place] PDMP was checked and patient last had oxycodone filled on 01/12/19 for 3 day supply. Patient to be discharged with prescription of Percocet q8 hours as need for pain for 3 day supply (12 tablets) Patient has follow up to primary care clinic 01/25/2019 1:20 PM Provider Roe Abreu, Department Family Practice [facility] Patient has been instructed by [facility] Urology service to do clinic follow up Urology Instructions: - If pain recurs over the weekend, please contact our office early Friday morning. Return to ER if fever >101F develops. - Otherwise, will arrange for follow up in 2 weeks with renal ultrasound to ensure resolution of hydronephrosis. Urology clinic [facility] - [address], [place] [address] (2) Ureteral colic: Ureteral colic secondary to ureterolithiasis -colic pain has resolved Nonintractable episodic headache -has resolved (3) RAE (acute kidney injury): baseline Cr 1.22 on initial presentation creatinine is 1.96 on IV fluids and creatinine downtrended to 1.69 by 01/20/19 on IV fluids and creatinine downtrended to 0.9 by 01/21/19 (4) BPH (benign prostatic hyperplasia): continue flomax (5) GERD (gastroesophageal reflux disease): continue PPI (6) DVT prophylaxis: SCDS while in the hospital Discharge Diagnosis Ureterolithiasis, ureteral colic, acute kidney injury, nonintractable episodic headache Subjective Patient denies headache. No back pain. No abdomen pain. No chest pain. No shortness of breath. Patient denies seeing stones or clots in the urine. Physical Exam Constitutional: WD/WN, vitals as above Eyes: PERRL, conjunctivae normal, anicteric sclerae EOM intact bilaterally ENMT: external ear and nose normal, oropharynx normal Neck: trachea midline, no thyromegaly Respiratory: normal respiratory effort, lungs clear to auscultation Cardiovascular: RRR, no murmur, no edema Gastrointestinal (Abdomen): normal bowel sounds, soft, nontender, no hepatosplenomegaly Musculoskeletal: no cyanosis or clubbing, extremities motor strength 5/5 Head/Neck/Chest: normocephalic and head atraumatic Neurologic: PERRL, EOMI, accommodation nl, no face palsy, no dysarthria CN's II-XI intact bilaterally Psychiatric: A+Ox3, euthymic affect Results & Data Vital Signs (Past 12 Hours) Vital Signs Temp Pulse Resp BP BP Pulse Ox 01/21/19 06:55 36.7 C 67 18 123/74 93 01/20/19 23:05 37.1 C 80 16 138/52 L 94
--- NOTE | 2019-01-21 10:34 | Discharge Summary ---
Date of Service January 21, 2019 Admission HPI Per Admitting Provider This is a 68-year-old male who has a significant PMH of HLD, BPH, GERD, Barretts esophagus, migraine, JEANNINE, dysthymia who presents to [facility] secondary to persistent right lower quadrant pain x1 week. Patient was last seen in [facility] ED on 01/12/2019 secondary to RLQ pain. He was diagnosed with nonobstructive distal right UVJ nephrolithiasis along with 3 mm nonobstructive left midpole stone. Patient was discharged with appropriate urology follow-up with conservative management. He was last seen in the urology office yesterday and saw by HANG. Underwent repeat KUB which reading revealed no nephrolithiasis; however after further review by urology the 4mm stone inferior to SI joint was still noted. Given this fact he was recommended for ESWL. This was going to be set up as outpatient; however patient unable to control pain therefore he represented back to ED. Today patient states he has continued right lower quadrant pain, waxes and wanes in severity, described as dull ache, improved with prescribed oxycodone, nothing makes worse, rated as 11/10 max pain. Currently he is pain-free after receiving analgesia in ED. He further elicits her past few days he has been nauseated and had decreased p.o. intake secondary to pain. He complains of increased urgency and frequency with urination. He denies any fever, chills, sweats, lightheadedness, dizziness, diarrhea, dysuria, hematuria, chest pain, shortness breath, palpitations. Admission Exam Per Admitting Provider Gen: WD/WN, M/F, NAD, sitting up in bed, pleasant, conversing easily Head: Normocephalic, Atraumatic Eyes: Sclera normal, no conjunctival injection, PERRLA, EOMI ENT: Gross hearing intact, normal pharynx, mucous membranes moist Neck: supple, no adenopathy, No JVD, no bruit, Resp: Clear to auscultation b/l, no wheeze, rales, rhonchi. 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 suture winder hand strength Extremities: No edema bilaterally Skin: warm, moist, no rash, negative turgor, cap refill < 2sec Neuro: Alert and oriented x 3, speech normal, good mood/affect, cran nerve 2-12 intact grossly : deferred Principal Diagnosis Ureterolithiasis, ureteral colic, acute kidney injury, nonintractable episodic headache Discharge Exam Constitutional WD/WN, vitals as above Eyes PERRL, conjunctivae normal, anicteric sclerae EOM intact bilaterally ENMT external ear and nose normal, oropharynx normal Neck trachea midline, no thyromegaly Respiratory normal respiratory effort, lungs clear to auscultation Cardiovascular RRR, no murmur, no edema Gastrointestinal (Abdomen) normal bowel sounds, soft, nontender, no hepatosplenomegaly Musculoskeletal no cyanosis or clubbing, extremities motor strength 5/5 Head/Neck/Chest: normocephalic and head atraumatic Neurologic PERRL, EOMI, accommodation nl, no face palsy, no dysarthria CN's II-XI intact bilaterally Psychiatric A+Ox3, euthymic affect Discharge Data Allergies Allergy/AdvReac Type Severity Reaction Status Date / Time meloxicam Allergy Unknown . Verified 01/19/19 13:50 rofecoxib Allergy Unknown . Verified 01/19/19 13:50 Sulfa (Sulfonamide Allergy Unknown . Verified 01/19/19 13:50 Antibiotics) Consultations 01/19/19 15:42 ED Decision to Admit Stat 01/19/19 17:20 Consult Urology Routine Ordered Studies 01/20/19 08:43 US renal/blad retro comp Urgent Hospital Course (1) Ureterolithiasis: This is a 68-year-old male who has a significant PMH of HLD, BPH, GERD, Barretts esophagus, migraine, JEANNINE, dysthymia who presents to [facility] secondary to persistent right lower quadrant pain x1 week. Last seen in ED 01/12 for similar pain. Dx with 4mm distal ureteral stone. Discharged with conservative management and appropriate urology follow up Had follow up with urology as outpatient 01/18/19 in which repeat KUB confirmed persistent stone Failed outpt treatment; Cr elevated to 1.96 Patient had IV fluids, tamsulosin, urology evaluations, pain controlled with narcotic pain medications -renal ultrasound on 01/20/19 IMPRESSION: 1. The kidneys are normal in size. 2. There is a 5 mm obstructing calculus at the right vesicoureteral junction. This causes mild right-sided hydronephrosis. 3. A small nonobstructing calculus is seen in the left kidney -no acute urology interventions on 01/20/19 and patient NPO after midnight for further assessment KUB on 01/21/19 does not show any stone; presumably the stone has passed or perhaps the stone persists and not visible on KUB; [facility] urology service not doing cystoscopy at this time and recommends outpatient follow up Discharge Instructions Discharge to home Patient to be discharged with prescription of tamsulosin [place] PDMP was checked and patient last had oxycodone filled on 01/12/19 for 3 day supply. Patient to be discharged with prescription of Percocet q8 hours as need for pain for 3 day supply (12 tablets) Patient has follow up to primary care clinic 01/25/2019 1:20 PM Provider Roe Abreu, Department Family [facility] Patient has been instructed by [facility] Urology service to do clinic follow up Urology Instructions: - If pain recurs over the weekend, please contact our office early Friday morning. Return to ER if fever >101F develops. - Otherwise, will arrange for follow up in 2 weeks with renal ultrasound to ensure resolution of hydronephrosis. Urology clinic [facility] [place] [address] (2) Ureteral colic: Ureteral colic secondary to ureterolithiasis -colic pain has resolved Nonintractable episodic headache -has resolved (3) RAE (acute kidney injury): baseline Cr 1.22 on initial presentation creatinine is 1.96 on IV fluids and creatinine downtrended to 1.69 by 01/20/19 on IV fluids and creatinine downtrended to 0.9 by 01/21/19 (4) BPH (benign prostatic hyperplasia): continue flomax (5) GERD (gastroesophageal reflux disease): continue PPI (6) DVT prophylaxis: SCDS while in the hospital Discharge Diagnosis Ureterolithiasis, ureteral colic, acute kidney injury, nonintractable episodic headache Total Time Total Time Spent Total Time Spent (In Minutes): 40 minutes Total Time Includes: Examination of the Patient, Discharge Planning, Medication Reconciliation and Communication With Other Providers Discharge Plan Discharge Items Patient Disposition: Home - Self-Care Reason For Visit: NEPHROLITHIASIS,FAILED OUTPT MANAGEMENT Discharge Diagnosis: Ureterolithiasis, ureteral colic, acute kidney injury, nonintractable episodic headache Condition: Good Discharge Goals: Improve disease control Activity: Resume your previous activity Non-emergency contact: Primary Care Provider and Urologist Call non-emergency contact if: you have any medication questions Follow-up/Referrals: Roe Abreu, [Primary Care Provider] - Diet: Regular Addtl Provider Instructions: Discharge to home Patient to be discharged with prescription of tamsulosin [place] PDMP was checked and patient last had oxycodone filled on 01/12/19 for 3 day supply. Patient to be discharged with prescription of Percocet q8 hours as need for pain for 3 day supply (12 tablets) Patient has follow up to primary care clinic 01/25/2019 1:20 PM Provider Roe Abreu, Department Family [facility] Patient has been instructed by [facility] Urology service to do clinic follow up Urology Instructions: - If pain recurs over the weekend, please contact our office early Friday morning. Return to ER if fever >101F develops. - Otherwise, will arrange for follow up in 2 weeks with renal ultrasound to ensure resolution of hydronephrosis[place] [address] Prescriptions: New tamsulosin 0.4 mg Capsule 0.4 mg PO HS 30 Days Qty: 30 RF: 0 oxycodone-acetaminophen 5-325 mg tablet 1 tab PO Q8H PRN (Reason: pain) 3 Days Qty: 12 RF: 0 Continued atorvastatin 40 mg tablet 40 mg PO DAILY RF: 0 clonazepam 0.5 mg tablet 0.25 mg PO HS RF: 0 escitalopram oxalate 20 mg tablet 20 mg PO QAM RF: 0 topiramate 50 mg tablet 50 mg PO BID RF: 0 oxycodone 5 mg tablet 5 mg PO Q6 PRN (Reason: pain) Qty: 14 RF: 0 sennosides [Senokot] 8.6 mg tablet 8.6 mg PO HS Qty: 30 RF: 0 docusate sodium [Colace] 100 mg capsule 100 mg PO BID Qty: 60 RF: 0 riboflavin (vitamin B2) 100 mg Tablet 400 mg PO DAILY RF: 0 glucosamine sulfate [Glucosamine] 500 mg Tablet 1,500 mg PO DAILY RF: 0 aspirin [Aspir-81] 81 mg Tablet,Delayed Release (Dr/Ec) 81 mg PO DAILY RF: 0 amitriptyline 25 mg tablet 12.5 mg PO DAILY RF: 0 chondroitin sulfate A sodium 400 mg Capsule 1,200 mg PO DAILY RF: 0 coenzyme Q10 [Co Q-10] 100 mg Capsule 100 mg PO DAILY RF: 0 Dexilant 60 mg capsule,biphase delayed releas 60 mg PO DAILY RF: 0 Spectravite Men's 8 mg iron- 200 mcg-600 mcg Tablet 1 tab PO DAILY RF: 0 [place]-3 350 mg-235 mg- 90 mg-597 mg Capsule,Delayed Release(Dr/Ec) 1 cap PO DAILY RF: 0 amitriptyline 25 mg tablet 37.5 mg PO HS RF: 0 cholecalciferol (vitamin D3) 1,000 unit Tablet 1,000 unit PO DAILY RF: 0 magnesium oxide 400 mg magnesium Tablet 400 mg PO DAILY RF: 0 Discontinued tamsulosin 0.4 mg capsule 0.4 mg PO DAILY RF: 0 Stand-Alone Forms: [facility] Discharge Orders: Discharge Order (Routine); Ordered 01/21/19 Ordered By: Hunter Rae Admission Data Admit Date/Time: 01/20/19 15:15 Attending Provider: Hunter Rae Admit Provider: Chelle Joshua Primary Care Provider: Roe Abreu Other Providers: Chelle Joshua ; Hesham Hernandez Service: Surgical Services
[2019-01-21 10:43] VITALS: BP 138/52; PULSE 76
== END 2019-01-21 11:34 | disposition home or self-care (01) | DRG 694 ==
LOC: ED 12:51 → 3N 12:51 → SUATTDRO 16:49 → 3N 16:59

== ENCOUNTER 2021-08-03 07:36 | Observation (INO) ==
[2021-08-03] MEDS ORDERED: MoRPHine SULFATE 4 MG/ML 1 ML CARP\\VIAL IV STA (08:06)
[2021-08-03] MEDS ORDERED: ONDANSETRON INJ 2 MG/ML 2 ML VIAL IV STA (08:06)
--- NOTE | 2021-08-03 08:16 | Emergency Department Note ---
Impression & Plan Abdominal pain, Acute appendicitis, Leukocytosis, High serum chloride, COVID-19 ED Provider Note NAME: OMA LI AGE: 71 SEX: M : 1950 ARRIVES VIA: Walk-In INFORMANT: Patient ED PROVIDER(S): Toni Jones DO CHIEF COMPLAINT: Right lower quadrant abdominal pain HPI: Patient is a 71-year-old male who presents ER for right lower quadrant abdominal pain. This started last evening. He notes the pain became severe. He gave himself an enema and had a large bowel movement. He has significant improvement in the pain but became very diaphoretic with the bowel movement lightheaded and had some paresthesias over the right distal dorsal hand. That resolved. The pain has gradually come back and he has severe pain down the right lower quadrant. It is worse with twisting turning bending and movement. He admits to some nausea but no vomiting. No dysuria, urgency, or frequency. No previous abdominal surgeries. No other exacerbating or remitting factors. Pain is a 6-7 out of 10. He would like something for the pain. ROS: See above HPI for pertinent positives & negatives. A total of 10 systems reviewed and were otherwise negative. PAST MEDICAL HISTORY:See Below PAST SURGICAL HISTORY:See Below FAMILY HISTORY:See Below SOCIAL HISTORY:See Below HOME MEDICATIONS:See Below ALLERGIES:See Below VITALS:See Below PHYSICAL EXAMINATION: GENERAL: Sitting up in bed, alert, well appearing, well nourished, no distress, non-toxic EYE EXAM: normal conjunctiva. PERRL and EOM's intact. OROPHARYNX: no exudate, no erythema, lips, buccal mucosa, and tongue normal and mucous membranes are moist NECK: supple, no nuchal rigidity, no adenopathy, non-tender LUNGS: Clear to auscultation. Normal chest wall mechanics HEART: no murmurs, S1 normal and S2 normal ABDOMEN: abdomen soft, tender palpation right lower quadrant, normo-active bowel sounds, no masses, no rebound or guarding. UPPER EXTREMITIES: upper extremities are grossly normal. LOWER EXTREMITIES: No pitting edema. NEURO EXAM: Normal sensorium, cranial nerves II-XII intact, normal speech, no weakness of arms, no weakness of legs. No drift. Finger to nose intact. Gross sensation intact. MEDICAL DECISION MAKING: Patient is a 1-year-old male who presents ER for right lower quadrant abdominal pain. He had some paresthesias last night while having severe pain and having a bowel movement chest in the dorsal aspect of the hand. There is no focal weakness. CT head was negative. IV was established blood work was obtained. Labs show leukocytosis of 12,000. No significant anemia. INR unremarkable. BMP is slightly elevated chloride at 108. LFTs bilirubin were unremarkable. Troponin was negative. Lipase unremarkable. UA was clean. CT abdomen pelvis confirms appendicitis. He was given cefoxitin. Covid was obtained and was actually positive. Discussed with the general surgery team Dr. Villalpando and patient will be admitted for further work-up. Triage Nursing notes reviewed. Limited review of prior medical records performed Vital Signs: reviewed and remarkable for no significant abnormalities Differential diagnosis: Differential diagnoses includes but is not limited to gastritis, peptic ulcer disease, GERD, gallbladder disease, pancreatitis, small bowel obstruction, acute coronary syndrome, pericarditis, ischemic bowel, irritable bowel disease, irritable bowel syndrome, appendicitis, diverticulitis, malignancy, hernia, urinary tract infection, torsion, [/ectopic (if female)], perforation, trauma, infectious. ER treatment provided: See below Diagnostics interpreted by me: ECG: Sinus rhythm rate 61 Left axis No PVCs QTC 384 Cardiac Monitoring: An order was placed for continuous cardiac monitoring. The monitor shows a rate of 82 with sinus rhythm. Laboratory studies: As stated above and show below. Imaging studies: CT head was clean CT abdomen pelvis shows acute appendicitis Consultation(s): Discussed with Dr. Beard who evaluate the patient at bedside and took to the OR Procedures: none Critical Care: None Past Med/Surg History Medical History RAE (acute kidney injury) Atrial fibrillation DX'D 08/2020-ON ELIQUIS F/U DR LUDWIG Chronic back pain NECK FULL ROM/LOWER BACK PAIN -HX SCIATICA Depression GERD (gastroesophageal reflux disease) History of BPH Hx of irritable bowel syndrome Hyperlipidemia Kidney stones Migraine Mitral valve prolapse Vitamin D deficiency Surgical History H/O: knee surgery History of arthroscopic knee surgery History of colonoscopy MULTIPLE History of esophagogastroduodenoscopy (EGD) History of tonsillectomy Family History Father Coronary heart disease, Onset Age: 50 Mother Coronary heart disease, Onset Age: 60 Social History Smoking Status: Never smoker Second Hand Exposure: Yes (PARENTS SMOKED); Hx Alcohol Use: No Preferred Language: French Communication Ability: Effective Seamstress Fitter Required: No Beliefs That Will Affect Care: None marital status: Current Living Situation: Spouse current occupational status: retired Feels Safe at Home: Yes Assistive Devices: Glasses Allergies Allergies Allergy/AdvReac Type Severity Reaction Status Date / Time meloxicam Allergy Intermediate Rash Verified 08/03/21 08:40 rofecoxib Allergy Intermediate Rash Verified 08/03/21 08:40 Sulfa (Sulfonamide Allergy Unknown Unknown Verified 08/03/21 08:40 Antibiotics) Home Meds Home Medications Medication Instructions Recorded Confirmed atorvastatin 40 mg tablet 40 mg PO QAM 01/12/19 08/03/21 clonazepam 0.5 mg tablet 0.25 mg PO HS PRN 01/12/19 08/03/21 escitalopram oxalate 20 mg tablet 20 mg PO QAM 01/12/19 08/03/21 topiramate 50 mg tablet 50 - 100 mg PO BID 01/12/19 08/03/21 coenzyme Q10 100 mg capsule (Co 100 mg PO BID 01/19/19 08/03/21 Q-10) dexlansoprazole 60 mg 60 mg PO QAM 01/19/19 08/03/21 capsule,biphase delayed release (Dexilant) riboflavin (vitamin B2) 100 mg 200 mg PO BID 01/19/19 08/03/21 tablet glucosamine sulfate 500 mg tablet 1,500 mg PO QAM 08/15/19 08/03/21 (Glucosamine) melatonin 5 mg tablet 6 mg PO HS PRN 08/15/19 08/03/21 apixaban 5 mg tablet (Eliquis) 5 mg PO BID 03/16/21 08/03/21 gabapentin 100 mg capsule 100 mg PO BID 03/16/21 08/03/21 metoprolol succinate 25 mg 12.5 mg PO BID 03/16/21 08/03/21 tablet,extended release 24 hr multivitamin 1 tab PO QAM 03/16/21 08/03/21 omega 2-oiq-hip-fish oil 900 1 cap PO QAM 03/16/21 08/03/21 mg-1,400 mg capsule,delayed release oxycodone 5 mg tablet 5 mg PO Q4H PRN 03/16/21 08/03/21 tamsulosin 0.4 mg capsule 0.4 mg PO HS 03/16/21 08/03/21 Previous Rx's Medication Instructions Recorded oxycodone-acetaminophen 5 mg-325 1 tab PO Q6H PRN #10 tab 04/02/21 mg tablet Results & Data (ED) Vital Signs Vital Signs - 24 hr 08/03/21 07:42 08/03/21 08:18 08/03/21 08:19 Temperature 36.8 C Temperature Source Temporal Artery Scan Pulse Rate 82 72 Pulse Rate [Apical] Pulse Rhythm [Apical] Pulse Strength [Apical] Respiratory Rate 18 Respiratory Effort / Characteristics Respiratory Depth Respiratory Pattern Blood Pressure 100/63 Blood Pressure [Right Arm] Blood Pressure Mean 75 Blood Pressure Mean [Right Arm] Blood Pressure Position [Right Arm] Pulse Oximetry 95 98 Oxygen Delivery Method Room Air Room Air Sepsis Recent Fever Within 48 Hours No Sepsis New/Unexplained Change in Mental Status No Sepsis Action Taken by Nursing No Action Required 08/03/21 08:20 08/03/21 08:30 08/03/21 08:40 Temperature Temperature Source Pulse Rate 83 79 76 Pulse Rate [Apical] Pulse Rhythm [Apical] Pulse Strength [Apical] Respiratory Rate Respiratory Effort / Characteristics Respiratory Depth Respiratory Pattern Blood Pressure 118/63 Blood Pressure [Right Arm] Blood Pressure Mean 81 Blood Pressure Mean [Right Arm] Blood Pressure Position [Right Arm] Pulse Oximetry Oxygen Delivery Method Sepsis Recent Fever Within 48 Hours Sepsis New/Unexplained Change in Mental Status Sepsis Action Taken by Nursing 08/03/21 08:50 08/03/21 09:00 08/03/21 09:18 Temperature Temperature Source Pulse Rate 76 75 78 Pulse Rate [Apical] Pulse Rhythm [Apical] Pulse Strength [Apical] Respiratory Rate 20 Respiratory Effort / Characteristics Respiratory Depth Respiratory Pattern Blood Pressure 108/63 Blood Pressure [Right Arm] Blood Pressure Mean 78 Blood Pressure Mean [Right Arm] Blood Pressure Position [Right Arm] Pulse Oximetry Oxygen Delivery Method Sepsis Recent Fever Within 48 Hours Sepsis New/Unexplained Change in Mental Status Sepsis Action Taken by Nursing 08/03/21 09:20 08/03/21 09:30 08/03/21 09:40 Temperature Temperature Source Pulse Rate 87 79 74 Pulse Rate [Apical] Pulse Rhythm [Apical] Pulse Strength [Apical] Respiratory Rate 24 16 14 Respiratory Effort / Characteristics Respiratory Depth Respiratory Pattern Blood Pressure 118/70 Blood Pressure [Right Arm] Blood Pressure Mean 86 Blood Pressure Mean [Right Arm] Blood Pressure Position [Right Arm] Pulse Oximetry Oxygen Delivery Method Sepsis Recent Fever Within 48 Hours Sepsis New/Unexplained Change in Mental Status Sepsis Action Taken by Nursing 08/03/21 09:50 08/03/21 10:00 08/03/21 10:10 Temperature Temperature Source Pulse Rate 73 72 71 Pulse Rate [Apical] Pulse Rhythm [Apical] Pulse Strength [Apical] Respiratory Rate 16 14 14 Respiratory Effort / Characteristics Respiratory Depth Respiratory Pattern Blood Pressure 130/76 Blood Pressure [Right Arm] Blood Pressure Mean 94 Blood Pressure Mean [Right Arm] Blood Pressure Position [Right Arm] Pulse Oximetry Oxygen Delivery Method Sepsis Recent Fever Within 48 Hours Sepsis New/Unexplained Change in Mental Status Sepsis Action Taken by Nursing 08/03/21 10:20 08/03/21 10:30 08/03/21 10:40 Temperature Temperature Source Pulse Rate 67 72 81 Pulse Rate [Apical] Pulse Rhythm [Apical] Pulse Strength [Apical] Respiratory Rate 14 18 17 Respiratory Effort / Characteristics Respiratory Depth Respiratory Pattern Blood Pressure 129/69 Blood Pressure [Right Arm] Blood Pressure Mean 89 Blood Pressure Mean [Right Arm] Blood Pressure Position [Right Arm] Pulse Oximetry Oxygen Delivery Method Sepsis Recent Fever Within 48 Hours Sepsis New/Unexplained Change in Mental Status Sepsis Action Taken by Nursing 08/03/21 11:00 08/03/21 13:16 Temperature Temperature Source Pulse Rate Pulse Rate [Apical] 76 82 Pulse Rhythm [Apical] Regular Regular Pulse Strength [Apical] Normal Normal Respiratory Rate 16 18 Respiratory Effort / Characteristics Non-Labored Spontaneous Non-Labored Spontaneous Respiratory Depth Normal Normal Respiratory Pattern Regular Blood Pressure Blood Pressure [Right Arm] 119/72 130/73 Blood Pressure Mean Blood Pressure Mean [Right Arm] 87 92 Blood Pressure Position [Right Arm] Semi-fowlers Semi-fowlers Pulse Oximetry 97 98 Oxygen Delivery Method Room Air Room Air Sepsis Recent Fever Within 48 Hours Sepsis New/Unexplained Change in Mental Status Sepsis Action Taken by Nursing Laboratory Data Result diagrams: 08/03/21 08:10 08/03/21 08:10 Lab Results 11/12/21 11/12/21 11/12/21 Range/Units 08:10 08:10 08:10 WBC 12.40 H (4.8-10.8) K/uL RBC 4.88 (4.7-6.1) M/uL Hgb 16.1 (14.0-18.0) g/dL Hct 46.0 (42-52) % MCV 94.3 (80-100) fL MCH 33.0 (25-34) pg MCHC 35.0 (32-36) g/dL RDW Std Deviation 44.7 (36.4-46.3) fL RDW Coeff of Jamir 12.9 (11.5-14.5) % Plt Count 165 (130-400) K/uL MPV 10.7 H (7.4-10.4) fL Immature Gran % (Auto) 0.2 % Neut % (Auto) 84.2 % Lymph % (Auto) 6.9 % Shannon % (Auto) 8.5 % Eos % (Auto) 0.0 % Baso % (Auto) 0.2 % Neut # (Auto) 10.43 H (1.4-6.5) K/uL Lymph # (Auto) 0.85 L (1.2-3.4) K/uL Shannon # (Auto) 1.06 H (0.11-0.59) K/uL Eos # (Auto) 0.00 (0-0.5) K/uL Baso # (Auto) 0.03 (0-0.2) K/uL Immature Gran # (Auto) 0.03 H (0.00-0.02) K/uL PT 10.6 (9.0-12.0) Seconds INR 1.0 (0.9-1.1) Sodium 138 (136-145) mmol/L Potassium 3.6 (3.5-5.1) mmol/L Chloride 108 H (98-107) mmol/L Carbon Dioxide 21 (21-32) mmol/L Anion Gap 9.0 (3-11) BUN 15 (7-18) mg/dl Creatinine 1.23 (0.6-1.4) mg/dl Est Cr Clr Drug Dosing 54.6 ml/min Est GFR ( Amer) 67.1 ml/min Est GFR (Non-Af Amer) 57.9 ml/min BUN/Creatinine Ratio 12.2 (10-20) Glucose 143 H (70-99) mg/dl Calcium 8.9 (8.5-10.1) mg/dl Total Bilirubin 1.0 (0.2-1) mg/dl AST 16 (15-37) U/L ALT 32 (12-78) U/L Alkaline Phosphatase 116 (45-117) U/L Troponin I < 0.015 (0-0.045) ng/ml Total Protein 7.4 (6.4-8.2) gm/dl Albumin 3.5 (3.4-5.0) gm/dl Globulin 3.9 (2.5-4.0) gm/dl Albumin/Globulin Ratio 0.9 (0.9-2) Lipase 80 (73-393) U/L Urine Color Urine Appearance (Clear) Urine pH (4.5-7.5) Ur Specific [place] (1.000-1.030) Urine Protein (Negative) Urine Glucose (UA) (Negative) Urine Ketones (Negative) Urine Blood (Negative) Urine Nitrite (Negative) Urine Bilirubin (Negative) Urine Urobilinogen (Negative) Ur Leukocyte Esterase (Negative) Urine WBC (Auto) (0-5) /hpf Urine RBC (Auto) (0-4) /hpf U Hyaline Cast (Auto) (0-5) /lpf U Epithel Cells (Auto) (0-5) /lpf Urine Bacteria (Auto) (Negative) COVID-19 Eval Order SARS-CoV-2 (PCR) (Negative) 08/03/21 08/03/21 08/03/21 Range/Units 08:20 10:18 10:18 WBC (4.8-10.8) K/uL RBC (4.7-6.1) M/uL Hgb (14.0-18.0) g/dL Hct (42-52) % MCV (80-100) fL MCH (25-34) pg MCHC (32-36) g/dL RDW Std Deviation (36.4-46.3) fL RDW Coeff of Jamir (11.5-14.5) % Plt Count (130-400) K/uL MPV (7.4-10.4) fL Immature Gran % (Auto) % Neut % (Auto) % Lymph % (Auto) % Shannon % (Auto) % Eos % (Auto) % Baso % (Auto) % Neut # (Auto) (1.4-6.5) K/uL Lymph # (Auto) (1.2-3.4) K/uL Shannon # (Auto) (0.11-0.59) K/uL Eos # (Auto) (0-0.5) K/uL Baso # (Auto) (0-0.2) K/uL Immature Gran # (Auto) (0.00-0.02) K/uL PT (9.0-12.0) Seconds INR (0.9-1.1) Sodium (136-145) mmol/L Potassium (3.5-5.1) mmol/L Chloride (98-107) mmol/L Carbon Dioxide (21-32) mmol/L Anion Gap (3-11) BUN (7-18) mg/dl Creatinine (0.6-1.4) mg/dl Est Cr Clr Drug Dosing ml/min Est GFR ( Amer) ml/min Est GFR (Non-Af Amer) ml/min BUN/Creatinine Ratio (10-20) Glucose (70-99) mg/dl Calcium (8.5-10.1) mg/dl Total Bilirubin (0.2-1) mg/dl AST (15-37) U/L ALT (12-78) U/L Alkaline Phosphatase (45-117) U/L Troponin I (0-0.045) ng/ml Total Protein (6.4-8.2) gm/dl Albumin (3.4-5.0) gm/dl Globulin (2.5-4.0) gm/dl Albumin/Globulin Ratio (0.9-2) Lipase (73-393) U/L Urine Color Dark Yellow Urine Appearance Turbid A (Clear) Urine pH 8.0 H (4.5-7.5) Ur Specific [place] 1.021 (1.000-1.030) Urine Protein 1+ H (Negative) Urine Glucose (UA) Negative (Negative) Urine Ketones Trace H (Negative) Urine Blood Negative (Negative) Urine Nitrite Negative (Negative) Urine Bilirubin Negative (Negative) Urine Urobilinogen Negative (Negative) Ur Leukocyte Esterase Negative (Negative) Urine WBC (Auto) 1-5 (0-5) /hpf Urine RBC (Auto) 0-4 (0-4) /hpf U Hyaline Cast (Auto) 1-5 (0-5) /lpf U Epithel Cells (Auto) 10-20 H (0-5) /lpf Urine Bacteria (Auto) Negative (Negative) COVID-19 Eval Order Covid19 at [facility] SARS-CoV-2 (PCR) POSITIVE A* (Negative) Administered Medications Discontinued Medications Cefoxitin Sodium (Mefoxin) 2,000 mg in 60 mls @ 100 mls/hr IV NOW STA Stop: 08/03/21 10:29 Last Infusion: 08/03/21 10:53 Dose: 0 mls/hr Documented by: [id number] Admin: 08/03/21 10:16 Dose: 100 mls/hr Documented by: [id number] Ioversol (Optiray 320 100ml) 96 ml IV ONCE ONE Stop: 08/03/21 09:15 Last Admin: 08/03/21 09:14 Dose: 96 ml Documented by: [id number] Morphine Sulfate (Morphine Sulfate 4 Mg/Ml 1 Ml Carp\Vial) 4 mg IV NOW STA Stop: 08/03/21 08:07 Last Admin: 08/03/21 08:17 Dose: 4 mg Documented by: [id number] Ondansetron HCl (Ondansetron Inj 2 Mg/Ml 2 Ml Vial) 4 mg IV NOW STA Stop: 08/03/21 08:07 Last Admin: 08/03/21 08:17 Dose: 4 mg Documented by: [id number] Imaging Data Radiologist's Impression: Abdomen/Pelvis CT 08/03/21 07:59 CT abd pelvis IV con only CLINICAL HISTORY: rlq abd pain with pain radiating into the back. Previous history of kidney stones COMPARISON STUDY: 08/18/2019 CT DOSE: 1149.29 mGy.cm TECHNIQUE: Standard CT of the Abdomen and Pelvis was performed with IV contrast. A dose lowering technique was utilized adhering to the principles of ALARA. Contrast Volume: Optiray 320, 96 ml. The patient did not receive oral contrast. FINDINGS: Lung base: The lung bases are clear. There is dependent atelectasis/edema at the lung bases. Abdominal cavity: There is no evidence for abdominal mass, adenopathy or ascites. Liver: There is homogeneous attenuation of the liver parenchyma. There is no evidence for enhancing mass lesion. Spleen: There is homogeneous attenuation of the splenic parenchyma. There is no enhancing mass lesion. Pancreas: There is homogeneous attenuation of the pancreatic parenchyma. There is no evidence for mass lesion or peripancreatic fluid collection. Gall Bladder: The gallbladder is well distended with no evidence for in traluminal calculi, wall thickening or pericholecystic edema. Adrenal glands: The adrenal glands are normal in size and attenuation. There is no evidence for enhancing mass lesion. Kidneys: There is homogeneous attenuation of the renal parenchyma bilaterally. There is no evidence for renal calculus or hydronephrosis. There is no evidence for enhancing mass. Bowel: There is evidence for acute appendicitis with dilatation of the pancreas measuring approximately 1.7 cm. Peripancreatic edema is seen. There is a calcified appendicolith at the origin of the appendix measuring approximately 10 mm. No evidence for perforation or abscess is seen. The bowel loops are otherwise normally placed within the abdomen and pelvis. There is no evidence for mass lesion. There is again diverticulosis of the descending and sigmoid colon without evidence for diverticulitis. There is no evidence for free air. Bladder: The bladder is within normal limits with no evidence for focal mass, calculus or diverticulum. There is mild diffuse thickening of the bladder wall characteristic of chronic bladder outlet obstruction. : There is no evidence for pelvic mass or adenopathy. There is no evidence for pelvic ascites. The prostate is mildly enlarged. Vasculature: There is no evidence for aneurysmal dilatation of the abdominal aorta. Osseous structures: There is no acute osseous pathology. Degenerative facet joint disease is seen involving the lower lumbar spine. IMPRESSION: 1. Acute appendicitis with calcified appendicolith. No perforation or abscess. 2. Additional nonacute findings are delineated above. Critical results will be called to the emergency department. ACT 112: Negative or not required by law. Electronically signed by: Ace Aguirre M.D. 08/03/2021 9:[address] 08/03/21 07:59 CT SCAN OF THE BRAIN WITHOUT IV CONTRAST CLINICAL HISTORY: Right upper extremity paresthesias. COMPARISON STUDY: No priors. TECHNIQUE: Unenhanced axial CT scan of the brain is performed from the vertex to the skull base. A dose lowering technique was utilized adhering to the principl es of TANIA. FINDINGS: Brain parenchyma: There are age-related involutional changes noting minimal subcortical and periventricular microangiopathic change. There is no hemorrhage, mass effect, or evidence of acute territorial ischemia by CT criteria. Chung- white matter differentiation is preserved. No extra-axial fluid collection is seen. Ventricles, sulci, cisterns: Prominent secondary to involutional change. Intracranial vasculature: There is atherosclerotic calcification of the cavernous carotid arteries. Calvarium: Unremarkable. Soft tissues: Sebaceous cysts within the posterior scalp measure up to 2 cm. Sinuses and mastoids: The visualized paranasal sinuses are clear. The mastoid air cells are well pneumatized. Orbits: The bony orbits are grossly intact. IMPRESSION: There is no hemorrhage, mass effect, or evidence of acute territorial ischemia by CT criteria. ACT 112: Negative or not required by law. Electronically signed by: Hugo Brownlee M.D. 08/03/2021 9:20 AM Discharge Plan Visit Data Chief Complaint: Abdominal Pain Stated Complaint: APPENDICITS AND CHEST PAINS ED Provider: Toni Jones Discharge Problem: Abdominal pain, Acute appendicitis, Leukocytosis, High serum chloride, COVID-19 Forms Stand Alone Forms: [facility] Prescriptions Prescriptions: No Action atorvastatin 40 mg tablet 40 mg PO QAM RF: 0 clonazepam 0.5 mg tablet 0.25 mg PO HS PRN (Reason: Sleep) RF: 0 escitalopram oxalate 20 mg tablet 20 mg PO QAM RF: 0 topiramate 50 mg tablet 50 - 100 mg PO BID RF: 0 riboflavin (vitamin B2) 100 mg Tablet 200 mg PO BID RF: 0 coenzyme Q10 [Co Q-10] 100 mg Capsule 100 mg PO BID RF: 0 Dexilant 60 mg capsule,biphase delayed releas 60 mg PO QAM RF: 0 glucosamine sulfate [Glucosamine] 500 mg Tablet 1,500 mg PO QAM RF: 0 melatonin 5 mg Tablet 6 mg PO HS PRN (Reason: Sleep) RF: 0 omega 1-zfw-plg-fish oil 900-1,400 mg Capsule,Delayed Release(Dr/Ec) 1 cap PO QAM RF: 0 oxycodone 5 mg tablet 5 mg PO Q4H PRN (Reason: Pain) RF: 0 Eliquis 5 mg Tablet 5 mg PO BID RF: 0 metoprolol succinate 25 mg Tablet Extended Release 24 Hr 12.5 mg PO BID RF: 0 gabapentin 100 mg Capsule 100 mg PO BID RF: 0 multivitamin Tablet 1 tab PO QAM RF: 0 tamsulosin 0.4 mg capsule 0.4 mg PO HS RF: 0 oxycodone-acetaminophen 5-325 mg tablet 1 tab PO Q6H PRN (Reason: pain) Qty: 10 RF: 0 Referrals Referrals: Roe Abreu DO [Primary Care Provider] - Discharge Problem: Abdominal pain Qualifiers: Abdominal location: unspecified location Qualified Code(s): R10.9 - Unspecified abdominal pain Acute appendicitis Qualifiers: Acute appendicitis type: with localized peritonitis Appendicitis gangrene pres ence: unspecified whether gangrene present Appendicitis perforation presence: unspecified whether perforation present Appendicitis abscess presence: without abscess Qualified Code(s): K35.30 - Acute appendicitis with localized peritonitis, without perforation or gangrene Leukocytosis Qualifiers: Leukocytosis type: unspecified Qualified Code(s): D72.829 - Elevated white blood cell count, unspecified
[2021-08-03 08:20] LABS: Basophils # (auto) 0.03 K/uL (0-0.2); Basophils % (auto) 0.2 %; Hemoglobin 16.1 g/dL (14.0-18.0); Immature Granulocytes # (auto) 0.03 K/uL (0.00-0.02); Immature Granulocytes % (auto) 0.2 %; Lymphocytes # (auto) 0.85 K/uL (1.2-3.4); Lymphocytes % (auto) 6.9 %; Mean Corpuscular Volume 94.3 fL (80-100); Mean Platelet Volume 10.7 fL (7.4-10.4); Monocytes # (auto) 1.06 K/uL (0.11-0.59); Monocytes % (auto) 8.5 %; Neutrophils # (auto) 10.43 K/uL (1.4-6.5); Neutrophils % (auto) 84.2 %; Platelet Count 165 K/uL (130-400); RDW Coefficient of Variation 12.9 % (11.5-14.5); RDW Standard Deviation 44.7 fL (36.4-46.3); Red Blood Count 4.88 M/uL (4.7-6.1)
[2021-08-03 08:32] LABS: Prothrombin Time 10.6 Seconds (9.0-12.0)
[2021-08-03 08:45] LABS: Alanine Aminotransferase 32 U/L (12-78); Albumin Level 3.5 gm/dl (3.4-5.0); Aspartate Aminotransferase 16 U/L (15-37); BUN Creatinine Ratio 12.2 (10-20); Blood Urea Nitrogen 15 mg/dl (7-18); Calcium 8.9 mg/dl (8.5-10.1); Carbon Dioxide 21 mmol/L (21-32); Chloride 108 mmol/L (98-107); Creatinine Clr Calc Pharmacy 54.6 ml/min; Est GFR (African American) 67.1 ml/min; Est GFR (Non-African American) 57.9 ml/min; Glucose 143 mg/dl (70-99); Lipase 80 U/L (73-393); Potassium 3.6 mmol/L (3.5-5.1); Sodium 138 mmol/L (136-145)
[2021-08-03 08:51] LABS: Albumin Globulin Ratio 0.9 (0.9-2); Alkaline Phosphatase 116 U/L (45-117); Globulin 3.9 gm/dl (2.5-4.0); Total Protein 7.4 gm/dl (6.4-8.2); Troponin I < 0.015 ng/ml (0-0.045)
[2021-08-03 08:52] LABS: Appearance Urine Turbid (Clear); Bacteria Urine Automated Negative (Negative); Bilirubin Urine Negative (Negative); Blood Urine Negative (Negative); Color Urine Dark Yellow; Glucose Urine UA Negative (Negative); Ketones Urine Trace (Negative); Leukocyte Esterase Urine Negative (Negative); Nitrite Urine Negative (Negative); RBC Urine Automated 0-4 /hpf (0-4); Specific Gravity Urine 1.021 (1.000-1.030); Urobilinogen Urine Negative (Negative)
[2021-08-03] MEDS ORDERED: OPTIRAY 320 100ml IV ONE (09:14)
--- NOTE | 2021-08-03 09:21 | CT Scan Report ---
CT SCAN OF THE BRAIN WITHOUT IV CONTRAST CLINICAL HISTORY: Right upper extremity paresthesias. COMPARISON STUDY: No priors. TECHNIQUE: Unenhanced axial CT scan of the brain is performed from the vertex to the skull base. A do se lowering technique was utilized adhering to the principles of ALARA. FINDINGS: Brain parenchyma: There are age-related involutional changes noting minimal subcortical and perivent ricular microangiopathic change. There is no hemorrhage, mass effect, or evidence of acute territoria l ischemia by CT criteria. Chung-white matter differentiation is preserved. No extra-axial fluid colle ction is seen. Ventricles, sulci, cisterns: Prominent secondary to involutional change. Intracranial vasculature: There is atherosclerotic calcification of the cavernous carotid arteries. Calvarium: Unremarkable. Soft tissues: Sebaceous cysts within the posterior scalp measure up to 2 cm. Sinuses and mastoids: The visualized paranasal sinuses are clear. The mastoid air cells are well pneu matized. Orbits: The bony orbits are grossly intact. IMPRESSION: There is no hemorrhage, mass effect, or evidence of acute territorial ischemia by CT tonio metzger. ACT 112: Negative or not required by law. Electronically signed by: Hugo Brownlee M.D. 08/03/2021 9:20 AM
[2021-08-03 09:22] LABS: Protein Urine 1+ (Negative)
--- NOTE | 2021-08-03 09:36 | CT Scan Report ---
CT abd pelvis IV con only CLINICAL HISTORY: rlq abd pain with pain radiating into the back. Previous history of kidney stones COMPARISON STUDY: 08/18/2019 CT DOSE: 1149.29 mGy.cm TECHNIQUE: Standard CT of the Abdomen and Pelvis was performed with IV contrast. A dose lowering nyasia hnique was utilized adhering to the principles of ALARA. Contrast Volume: Optiray 320, 96 ml. The patient did not receive oral contrast. FINDINGS: Lung base: The lung bases are clear. There is dependent atelectasis/edema at the lung bases. Abdominal cavity: There is no evidence for abdominal mass, adenopathy or ascites. Liver: There is homogeneous attenuation of the liver parenchyma. There is no evidence for enhancing m ass lesion. Spleen: There is homogeneous attenuation of the splenic parenchyma. There is no enhancing mass lesion . Pancreas: There is homogeneous attenuation of the pancreatic parenchyma. There is no evidence for mas s lesion or peripancreatic fluid collection. Gall Bladder: The gallbladder is well distended with no evidence for intraluminal calculi, wall thick ening or pericholecystic edema. Adrenal glands: The adrenal glands are normal in size and attenuation. There is no evidence for enhan cing mass lesion. Kidneys: There is homogeneous attenuation of the renal parenchyma bilaterally. There is no evidence f or renal calculus or hydronephrosis. There is no evidence for enhancing mass. Bowel: There is evidence for acute appendicitis with dilatation of the pancreas measuring approximate ly 1.7 cm. Peripancreatic edema is seen. There is a calcified appendicolith at the origin of the appe ndix measuring approximately 10 mm. No evidence for perforation or abscess is seen. The bowel loops are otherwise normally placed within the abdomen and pelvis. There is no evidence fo r mass lesion. There is again diverticulosis of the descending and sigmoid colon without evidence for diverticulitis. There is no evidence for free air. Bladder: The bladder is within normal limits with no evidence for focal mass, calculus or diverticulu m. There is mild diffuse thickening of the bladder wall characteristic of chronic bladder outlet obst ruction. : There is no evidence for pelvic mass or adenopathy. There is no evidence for pelvic ascites. The prostate is mildly enlarged. Vasculature: There is no evidence for aneurysmal dilatation of the abdominal aorta. Osseous structures: There is no acute osseous pathology. Degenerative facet joint disease is seen inv olving the lower lumbar spine. IMPRESSION: 1. Acute appendicitis with calcified appendicolith. No perforation or abscess. 2. Additional nonacute findings are delineated above. Critical results will be called to the emergency department. ACT 112: Negative or not required by law. Electronically signed by: Ace Aguirre M.D. 08/03/2021 9:35 AM
[2021-08-03] MEDS ORDERED: cefOXitin 2,000 MG/60 ML BAG IV STA (09:54)
--- NOTE | 2021-08-03 10:10 | History & Physical Report ---
Date of Service August 03, 2021 Assessment & Plan (1) Acute appendicitis: (2) Appendicolith: Plan: 71 yo male with 12 hour history of severe right lower abdominal pain with associated nausea. CT scan showing dilated appendix at 17 mm without evidence of abscess or perforation. Leukocytosis of 12.4K. Abdomen is soft but tender in RLQ. Plan: Dr. Beard discussed CT scan findings of acute appendicitis with patient and recommendation of laparoscopic appendectomy. Discussed risks of procedure and possibility of open procedure. Informed consent obtained. NPO COVID preop test IV fluids IV cefoxitin will stay overnight Dr. Beard and I saw patient together and he agrees with above. History of Present Illness Chief Complaint: Abdominal pain Primary Care Provider: DO Juan Chen is a 71 yo male who presented to emergency room with complaint of abdominal pain that began last evening. States the pain was severe. Had associated nausea and felt feverish. No vomiting. No diarrhea, blood in stools, or difficulty urinating. Never had this type of pain before. Has atrial fibrillation and takes Eliquis BID. Last dose was last evening at 11 pm, did not take this morning. Has not had anything to eat or drink since last evening. Allergies Allergy/AdvReac Type Severity Reaction Status Date / Time meloxicam Allergy Intermediate Rash Verified 08/03/21 08:40 rofecoxib Allergy Intermediate Rash Verified 08/03/21 08:40 Sulfa (Sulfonamide Allergy Unknown Unknown Verified 08/03/21 08:40 Antibiotics) Home Medications Medication Instructions Recorded Confirmed Type atorvastatin 40 mg tablet 40 mg PO QAM 01/12/19 08/03/21 History clonazepam 0.5 mg tablet 0.25 mg PO HS PRN 01/12/19 08/03/21 History escitalopram oxalate 20 mg tablet 20 mg PO QAM 01/12/19 08/03/21 History topiramate 50 mg tablet 50 - 100 mg PO BID 01/12/19 08/03/21 History coenzyme Q10 100 mg capsule (Co 100 mg PO BID 01/19/19 08/03/21 History Q-10) dexlansoprazole 60 mg 60 mg PO QAM 01/19/19 08/03/21 History capsule,biphase delayed release (Dexilant) riboflavin (vitamin B2) 100 mg 200 mg PO BID 01/19/19 08/03/21 History tablet glucosamine sulfate 500 mg tablet 1,500 mg PO QAM 08/15/19 08/03/21 History (Glucosamine) melatonin 5 mg tablet 6 mg PO HS PRN 08/15/19 08/03/21 History apixaban 5 mg tablet (Eliquis) 5 mg PO BID 03/16/21 08/03/21 History gabapentin 100 mg capsule 100 mg PO BID 03/16/21 08/03/21 History metoprolol succinate 25 mg 12.5 mg PO BID 03/16/21 08/03/21 History tablet,extended release 24 hr multivitamin 1 tab PO QAM 03/16/21 08/03/21 History omega 8-tlo-xcd-fish oil 900 1 cap PO QAM 03/16/21 08/03/21 History mg-1,400 mg capsule,delayed release oxycodone 5 mg tablet 5 mg PO Q4H PRN 03/16/21 08/03/21 History tamsulosin 0.4 mg capsule 0.4 mg PO HS 03/16/21 08/03/21 History oxycodone-acetaminophen 5 mg-325 1 tab PO Q6H PRN #10 tab 04/02/21 08/03/21 Rx mg tablet Past Med/Surg History Medical History (Updated 08/03/21 @ 10:13 by Pia Heaton PA-C) RAE (acute kidney injury) Atrial fibrillation DX'D 08/2020-ON ELIQUIS F/U DR LUDWIG Chronic back pain NECK FULL ROM/LOWER BACK PAIN -HX SCIATICA Depression GERD (gastroesophageal reflux disease) History of BPH Hx of irritable bowel syndrome Hyperlipidemia Kidney stones Migraine Mitral valve prolapse Vitamin D deficiency Surgical History H/O: knee surgery History of arthroscopic knee surgery History of colonoscopy MULTIPLE History of esophagogastroduodenoscopy (EGD) History of tonsillectomy Family History Father Coronary heart disease, Onset Age: 50 Mother Coronary heart disease, Onset Age: 60 Social History Smoking Status: Never smoker Second Hand Exposure: Yes (PARENTS SMOKED); Hx Alcohol Use: No Preferred Language: [place]er Communication Ability: Effective Sales Record Clerk Required: No Beliefs That Will Affect Care: None marital status: Current Living Situation: Spouse current occupational status: retired Feels Safe at Home: Yes Assistive Devices: Glasses Review of Systems Review of Systems: All systems reviewed & are unremarkable except as noted in HPI & below Physical Exam Constitutional: WD/WN, vitals as above no acute distress and not ill appearing Respiratory: normal respiratory effort, lungs clear to auscultation Cardiovascular: Rate/Rhythm: + irregularly irregular Gastrointestinal (Abdomen): Inspection/Auscultation: abdomen normal to inspection; abdomen not distended Percussion/Palpation: + abdomen tender (RLQ, no rebound or peritonitis) and abdomen soft; no guarding and abdomen not rigid Skin: no rashes, warm and dry Psychiatric: A+Ox3, euthymic affect Results & Data Results & Data ([facility]) Vital Signs (Past 12 Hours) Vital Signs Temp Pulse Resp BP Pulse Ox 08/03/21 09:20 87 24 08/03/21 09:18 78 20 08/03/21 09:00 75 108/63 08/03/21 08:50 76 08/03/21 08:40 76 08/03/21 08:30 79 118/63 08/03/21 08:20 83 08/03/21 08:19 98 08/03/21 08:18 72 08/03/21 07:42 36.8 C 82 18 100/63 95 Laboratory Results 08/03/21 08/03/21 08/03/21 Range/Units 08:20 08:10 08:10 WBC (4.8-10.8) K/uL RBC (4.7-6.1) M/uL Hgb (14.0-18.0) g/dL Hct (42-52) % MCV (80-100) fL MCH (25-34) pg MCHC (32-36) g/dL RDW Std Deviation (36.4-46.3) fL RDW Coeff of Jamir (11.5-14.5) % Plt Count (130-400) K/uL MPV (7.4-10.4) fL Immature Gran % (Auto) % Neut % (Auto) % Lymph % (Auto) % [place] % (Auto) % Eos % (Auto) % Baso % (Auto) % Neut # (Auto) (1.4-6.5) K/uL Lymph # (Auto) (1.2-3.4) K/uL [place] # (Auto) (0.11-0.59) K/uL Eos # (Auto) (0-0.5) K/uL Baso # (Auto) (0-0.2) K/uL Immature Gran # (Auto) (0.00-0.02) K/uL PT 10.6 (9.0-12.0) Seconds INR 1.0 (0.9-1.1) Sodium 138 (136-145) mmol/L Potassium 3.6 (3.5-5.1) mmol/L Chloride 108 H (98-107) mmol/L Carbon Dioxide 21 (21-32) mmol/L Anion Gap 9.0 (3-11) BUN 15 (7-18) mg/dl Creatinine 1.23 (0.6-1.4) mg/dl Est Cr Clr Drug Dosing 54.6 ml/min Est GFR ( Amer) 67.1 ml/min Est GFR (Non-Af Amer) 57.9 ml/min BUN/Creatinine Ratio 12.2 (10-20) Glucose 143 H (70-99) mg/dl Calcium 8.9 (8.5-10.1) mg/dl Total Bilirubin 1.0 (0.2-1) mg/dl AST 16 (15-37) U/L ALT 32 (12-78) U/L Alkaline Phosphatase 116 (45-117) U/L Troponin I < 0.015 (0-0.045) ng/ml Total Protein 7.4 (6.4-8.2) gm/dl Albumin 3.5 (3.4-5.0) gm/dl Globulin 3.9 (2.5-4.0) gm/dl Albumin/Globulin Ratio 0.9 (0.9-2) Lipase 80 (73-393) U/L Urine Color Dark Yellow Urine Appearance Turbid A (Clear) Urine pH 8.0 H (4.5-7.5) Ur Specific [place] 1.021 (1.000-1.030) Urine Protein 1+ H (Negative) Urine Glucose (UA) Negative (Negative) Urine Ketones Trace H (Negative) Urine Blood Negative (Negative) Urine Nitrite Negative (Negative) Urine Bilirubin Negative (Negative) Urine Urobilinogen Negative (Negative) Ur Leukocyte Esterase Negative (Negative) Urine WBC (Auto) 1-5 (0-5) /hpf Urine RBC (Auto) 0-4 (0-4) /hpf U Hyaline Cast (Auto) 1-5 (0-5) /lpf U Epithel Cells (Auto) 10-20 H (0-5) /lpf Urine Bacteria (Auto) Negative (Negative) 08/03/21 Range/Units 08:10 WBC 12.40 H (4.8-10.8) K/uL RBC 4.88 (4.7-6.1) M/uL Hgb 16.1 (14.0-18.0) g/dL Hct 46.0 (42-52) % MCV 94.3 (80-100) fL MCH 33.0 (25-34) pg MCHC 35.0 (32-36) g/dL RDW Std Deviation 44.7 (36.4-46.3) fL RDW Coeff of Jamir 12.9 (11.5-14.5) % Plt Count 165 (130-400) K/uL MPV 10.7 H (7.4-10.4) fL Immature Gran % (Auto) 0.2 % Neut % (Auto) 84.2 % Lymph % (Auto) 6.9 % [place] % (Auto) 8.5 % Eos % (Auto) 0.0 % Baso % (Auto) 0.2 % Neut # (Auto) 10.43 H (1.4-6.5) K/uL Lymph # (Auto) 0.85 L (1.2-3.4) K/uL [place] # (Auto) 1.06 H (0.11-0.59) K/uL Eos # (Auto) 0.00 (0-0.5) K/uL Baso # (Auto) 0.03 (0-0.2) K/uL Immature Gran # (Auto) 0.03 H (0.00-0.02) K/uL PT (9.0-12.0) Seconds INR (0.9-1.1) Sodium (136-145) mmol/L Potassium (3.5-5.1) mmol/L Chloride (98-107) mmol/L Carbon Dioxide (21-32) mmol/L Anion Gap (3-11) BUN (7-18) mg/dl Creatinine (0.6-1.4) mg/dl Est Cr Clr Drug Dosing ml/min Est GFR ( Amer) ml/min Est GFR (Non-Af Amer) ml/min BUN/Creatinine Ratio (10-20) Glucose (70-99) mg/dl Calcium (8.5-10.1) mg/dl Total Bilirubin (0.2-1) mg/dl AST (15-37) U/L ALT (12-78) U/L Alkaline Phosphatase (45-117) U/L Troponin I (0-0.045) ng/ml Total Protein (6.4-8.2) gm/dl Albumin (3.4-5.0) gm/dl Globulin (2.5-4.0) gm/dl Albumin/Globulin Ratio (0.9-2) Lipase (73-393) U/L Urine Color Urine Appearance (Clear) Urine pH (4.5-7.5) Ur Specific [place] (1.000-1.030) Urine Protein (Negative) Urine Glucose (UA) (Negative) Urine Ketones (Negative) Urine Blood (Negative) Urine Nitrite (Negative) Urine Bilirubin (Negative) Urine Urobilinogen (Negative) Ur Leukocyte Esterase (Negative) Urine WBC (Auto) (0-5) /hpf Urine RBC (Auto) (0-4) /hpf U Hyaline Cast (Auto) (0-5) /lpf U Epithel Cells (Auto) (0-5) /lpf Urine Bacteria (Auto) (Negative) Diagnostic Findings CT abd pelvis IV con only CLINICAL HISTORY: rlq abd pain with pain radiating into the back. Previous history of kidney stones COMPARISON STUDY: 08/18/2019 CT DOSE: 1149.29 mGy.cm TECHNIQUE: Standard CT of the Abdomen and Pelvis was performed with IV contrast. A dose lowering technique was utilized adhering to the principles of ALARA. Contrast Volume: Optiray 320, 96 ml. The patient did not receive oral contrast. FINDINGS: Lung base: The lung bases are clear. There is dependent atelectasis/edema at the lung bases. Abdominal cavity: There is no evidence for abdominal mass, adenopathy or ascites. Liver: There is homogeneous attenuation of the liver parenchyma. There is no evidence for enhancing mass lesion. Spleen: There is homogeneous attenuation of the splenic parenchyma. There is no enhancing mass lesion. Pancreas: There is homogeneous attenuation of the pancreatic parenchyma. There is no evidence for mass lesion or peripancreatic fluid collection. Gall Bladder: The gallbladder is well distended with no evidence for intraluminal calculi, wall thickening or pericholecystic edema. Adrenal glands: The adrenal glands are normal in size and attenuation. There is no evidence for enhancing mass lesion. Kidneys: There is homogeneous attenuation of the renal parenchyma bilaterally. There is no evidence for renal calculus or hydronephrosis. There is no evidence for enhancing mass. Bowel: There is evidence for acute appendicitis with dilatation of the pancreas measuring approximately 1.7 cm. Peripancreatic edema is seen. There is a calcified appendicolith at the origin of the appendix measuring approximately 10 mm. No evidence for perforation or abscess is seen. The bowel loops are otherwise normally placed within the abdomen and pelvis. There is no evidence for mass lesion. There is again diverticulosis of the descending and sigmoid colon without evidence for diverticulitis. There is no evidence for free air. Bladder: The bladder is within normal limits with no evidence for focal mass, calculus or diverticulum. There is mild diffuse thickening of the bladder wall characteristic of chronic bladder outlet obstruction. : There is no evidence for pelvic mass or adenopathy. There is no evidence for pelvic ascites. The prostate is mildly enlarged. Vasculature: There is no evidence for aneurysmal dilatation of the abdominal aorta. Osseous structures: There is no acute osseous pathology. Degenerative facet joint disease is seen involving the lower lumbar spine. IMPRESSION: 1. Acute appendicitis with calcified appendicolith. No perforation or abscess. 2. Additional nonacute findings are delineated above. Critical results will be called to the emergency department. Code Status & VTE Plan VTE Prophylaxis Plan VTE Prophylaxis will be ordered: Yes
--- NOTE | 2021-08-03 11:06 | Anesthesiology Consultation ---
Date of Service August 03, 2021 Assessment & Plan (1) Encounter for pre-operative examination: Chart Review Chart Review: Acceptable Risk for Surgery and Patient NOT seen in Pre Admission Testing Consults Requested none Additional Notes pending COVID test History Surgery Operation Date: 08/03/21 13:15 Proposed Procedures p Laparoscopic Appendectomy - Oscar Beard MD Height/Weight Height: 5 ft 7 in Weight: 81.3 kg Allergies Allergy/AdvReac Type Severity Reaction Status Date / Time meloxicam Allergy Intermediate Rash Verified 08/03/21 08:40 rofecoxib Allergy Intermediate Rash Verified 08/03/21 08:40 Sulfa (Sulfonamide Allergy Unknown Unknown Verified 08/03/21 08:40 Antibiotics) Medications Home Medications Medication Instructions Recorded Confirmed Last Taken atorvastatin 40 mg tablet 40 mg PO QAM 01/12/19 08/03/21 08/02/21 clonazepam 0.5 mg tablet 0.25 mg PO HS PRN 01/12/19 08/03/21 08/02/21 escitalopram oxalate 20 mg tablet 20 mg PO QAM 01/12/19 08/03/21 08/02/21 topiramate 50 mg tablet 50 - 100 mg PO BID 01/12/19 08/03/21 08/02/21 coenzyme Q10 100 mg capsule (Co 100 mg PO BID 01/19/19 08/03/21 08/02/21 Q-10) dexlansoprazole 60 mg 60 mg PO QAM 01/19/19 08/03/21 08/02/21 capsule,biphase delayed release (Dexilant) riboflavin (vitamin B2) 100 mg 200 mg PO BID 01/19/19 08/03/21 08/02/21 tablet glucosamine sulfate 500 mg tablet 1,500 mg PO QAM 08/15/19 08/03/21 08/02/21 (Glucosamine) melatonin 5 mg tablet 6 mg PO HS PRN 08/15/19 08/03/21 08/02/21 apixaban 5 mg tablet (Eliquis) 5 mg PO BID 03/16/21 08/03/21 08/02/21 gabapentin 100 mg capsule 100 mg PO BID 03/16/21 08/03/21 08/02/21 metoprolol succinate 25 mg 12.5 mg PO BID 03/16/21 08/03/21 08/02/21 tablet,extended release 24 hr multivitamin 1 tab PO QAM 03/16/21 08/03/21 08/02/21 omega 3-zqk-ahb-fish oil 900 1 cap PO QAM 03/16/21 08/03/21 08/02/21 mg-1,400 mg capsule,delayed release oxycodone 5 mg tablet 5 mg PO Q4H PRN 03/16/21 08/03/21 08/02/21 tamsulosin 0.4 mg capsule 0.4 mg PO HS 03/16/21 08/03/21 08/02/21 oxycodone-acetaminophen 5 mg-325 1 tab PO Q6H PRN #10 tab 04/02/21 08/03/21 08/02/21 mg tablet Past Medical History Medical History RAE (acute kidney injury) Atrial fibrillation DX'D 08/2020-ON ELIQUIS F/U DR LUDWIG Chronic back pain NECK FULL ROM/LOWER BACK PAIN -HX SCIATICA Depression GERD (gastroesophageal reflux disease) History of BPH Hx of irritable bowel syndrome Hyperlipidemia Kidney stones Migraine Mitral valve prolapse Vitamin D deficiency Past Family History Family History Father Coronary heart disease, Onset Age: 50 Mother Coronary heart disease, Onset Age: 60 Past Surgical History Surgical History H/O: knee surgery History of arthroscopic knee surgery History of colonoscopy MULTIPLE History of esophagogastroduodenoscopy (EGD) History of tonsillectomy Social History Smoking Status: Never smoker Hx Alcohol Use: No Alcohol type: beer alcohol intake frequency: holidays/special occasions only substance use type: does not use Physical Exam Vital Signs Last Vital Signs Temp 98.2 F 08/03/21 07:42 Pulse 76 08/03/21 11:00 Resp 16 08/03/21 11:00 BP 119/72 08/03/21 11:00 Pulse Ox 97 08/03/21 11:00 Testing Laboratory Results 08/03/21 08:10 08/03/21 08:10 PT 10.6 Seconds (9.0-12.0) 08/03/21 08:10 INR 1.0 (0.9-1.1) 08/03/21 08:10 Urine Color Dark Yellow 08/03/21 08:20 Urine Appearance Turbid (Clear) A 08/03/21 08:20 Urine pH 8.0 (4.5-7.5) H 08/03/21 08:20 Ur Specific [place] 1.021 (1.000-1.030) 08/03/21 08:20 Urine Protein 1+ (Negative) H 08/03/21 08:20 Urine Glucose (UA) Negative (Negative) 08/03/21 08:20 Urine Ketones Trace (Negative) H 08/03/21 08:20 Urine Nitrite Negative (Negative) 08/03/21 08:20 Ur Leukocyte Esterase Negative (Negative) 08/03/21 08:20 Urine WBC (Auto) 1-5 /hpf (0-5) 08/03/21 08:20 Urine RBC (Auto) 0-4 /hpf (0-4) 08/03/21 08:20 U Hyaline Cast (Auto) 1-5 /lpf (0-5) 08/03/21 08:20 U Epithel Cells (Auto) 10-20 /lpf (0-5) H 08/03/21 08:20 Urine Bacteria (Auto) Negative (Negative) 08/03/21 08:20 Electrocardiogram Date: 08/03/21 Findings: + NSR @ Normal sinus rhythm Possible Left atrial enlargement
--- NOTE | 2021-08-03 12:19 | History & Physical Bridge Note ---
Date of Service August 03, 2021 History & Physical Bridge Note I have examined the patient, reviewed the History & Physical and in the interval since the performance of the History & Physical I have noted the following changes of clinical significance: no changes noted
[2021-08-03] MEDS ORDERED: fentaNYL citrate 100 MCG/2 ML VIAL ONE (13:11)
[2021-08-03] MEDS ORDERED: PROPOFOL IV EMULSION 10 MG/ML 20 ML VIAL IV ONE (13:11)
[2021-08-03] MEDS ORDERED: ONDANSETRON INJ 2 MG/ML 2 ML VIAL ONE (13:11)
[2021-08-03] MEDS ORDERED: ROCURONIUM BROMIDE 10 MG/ML 5 ML VIAL IV ONE (13:11)
--- NOTE | 2021-08-03 13:46 | Electrocardiogram Report ---
Test Reason : Blood Pressure : / mmHG Vent. Rate : 061 BPM Atrial Rate : 061 BPM P-R Int : 172 ms QRS Dur : 082 ms QT Int : 382 ms P-R-T Axes : 049 001 026 degrees QTc Int : 384 ms Normal sinus rhythm Possible Left atrial enlargement Borderline ECG When compared with ECG of 28-MAR-2021 10:12, No significant change was found Confirmed by Luis Jung ([id number]) on 08/03/2021 1:45:53 PM Referred By: Confirmed By:Luis Jung
[2021-08-03] MEDS ORDERED: BUPIVACAINE 0.5 % 5 MG/1 ML MPF 30ML VIAL ONE (13:48)
[2021-08-03] MEDS ORDERED: LIDOCAINE 1% LOCAL 20 ML VIAL ONE (13:48)
[2021-08-03] MEDS ORDERED: ePHEDrine sulfate 50 MG/ML AMP IV PRN (14:33)
[2021-08-03] MEDS ORDERED: fentaNYL citrate 100 MCG/2 ML VIAL IV PRN (14:33)
[2021-08-03] MEDS ORDERED: ONDANSETRON INJ 2 MG/ML 2 ML VIAL IV PRN ×2 (14:33→15:15)
[2021-08-03] MEDS ORDERED: ATROPINE SULFATE 0.1 MG/ML 10ML SYR IV PRN (14:33)
[2021-08-03] MEDS ORDERED: GLYCOPYRROLATE 0.2 MG/ML VIAL ONE (14:40)
[2021-08-03] MEDS ORDERED: NEOSTIGMINE METHYLSULFATE 1 MG/ML 10ML VIAL ONE (14:40)
--- NOTE | 2021-08-03 15:00 | Post Operative Brief Note ---
Immediate Post Op Note v1 Date of Surgery August 03, 2021 Pre & Post Diagnosis Operation Date: 08/03/21 13:15 Pre-Op Diagnosis: Acute appendicitis, Appendicolith Post-Op Diagnosis: Acute appendicitis, Appendicolith I identified the patient and participated in the time-out.: Yes Procedure Operation Date: 08/03/21 13:15 Actual Procedures p Laparoscopic Appendectomy(Not Applicable) - Oscar Beard MD Surgeon Oscar Beard MD Supervisor [employer] OPAL [place] Estimated Blood Loss 10 Findings Consistent with Post-Op Diagnosis Fluids 800ml Specimens appendix Anesthesia Type General Complications none Disposition Accompanied Patient To Recovery: Yes
--- NOTE | 2021-08-03 15:58 | Anesthesiology Progress Note ---
Date of Service August 03, 2021 Anesthesia Post Procedure Vital Signs Vital Signs: Temp Pulse Pulse Resp BP BP BP 08/03/21 15:55 93 H 12 133/91 08/03/21 15:45 83 15 140/67 08/03/21 15:35 85 13 153/81 H 08/03/21 15:25 37.8 C H 86 12 175/79 H 08/03/21 13:38 91 H 20 129/76 08/03/21 13:31 82 18 130/73 08/03/21 13:16 82 18 130/73 08/03/21 11:00 76 16 119/72 08/03/21 10:40 81 17 08/03/21 10:30 72 18 129/69 08/03/21 10:20 67 14 08/03/21 10:10 71 14 08/03/21 10:00 72 14 130/76 08/03/21 09:50 73 16 08/03/21 09:40 74 14 08/03/21 09:30 79 16 118/70 08/03/21 09:20 87 24 08/03/21 09:18 78 20 08/03/21 09:00 75 108/63 08/03/21 08:50 76 08/03/21 08:40 76 08/03/21 08:30 79 118/63 08/03/21 08:20 83 08/03/21 08:19 08/03/21 08:18 72 08/03/21 07:42 36.8 C 82 18 100/63 Pulse Ox 08/03/21 15:55 94 08/03/21 15:45 96 08/03/21 15:35 96 08/03/21 15:25 100 08/03/21 13:38 08/03/21 13:31 97 08/03/21 13:16 98 08/03/21 11:00 97 08/03/21 10:40 08/03/21 10:30 08/03/21 10:20 08/03/21 10:10 08/03/21 10:00 08/03/21 09:50 08/03/21 09:40 08/03/21 09:30 08/03/21 09:20 08/03/21 09:18 08/03/21 09:00 08/03/21 08:50 08/03/21 08:40 08/03/21 08:30 08/03/21 08:20 08/03/21 08:19 98 08/03/21 08:18 08/03/21 07:42 95 Transfer of Care Handoff Completed per policy Notes Mental Status: alert / awake / arousable and participated in evaluation Patient Amnestic to Procedure: Yes Nausea / Vomiting: adequately controlled Pain: adequately controlled Airway Patency, RR, SpO2: stable & adequate BP & HR: stable & adequate Hydration State: stable & adequate Anesthetic Complications: no major complications apparent and Pt Satisfied with anesthetic care
[2021-08-03] MEDS ORDERED: PIPERACILL/TAZOBAC CONSULT ACTIVE PRN (18:27)
[2021-08-03] MEDS ORDERED: clonazePAM 0.25 MG TAB PO PRN (18:27)
[2021-08-03] MEDS ORDERED: MELATONIN 3 MG TAB PO PRN (18:27)
[2021-08-03] MEDS ORDERED: HYDROmorphone INJ 0.5 MG/0.5 ML SYR IV PRN (18:27)
[2021-08-03] MEDS ORDERED: oxyCODONE HCL IR 5 MG TAB (IMMEDIATE RELEASE) PO PRN (18:27)
[2021-08-03] MEDS ORDERED: oxyCODONE/ACETAMINOPHEN 5mg/325mg TAB PO PRN ×2 (18:27)
[2021-08-03] MEDS ORDERED: ACETAMINOPHEN 325 MG TAB PO PRN (18:27)
[2021-08-03] MEDS ORDERED: PIPERACILLIN/TAZOBACTAM 3.375 GM in DEXTROSE 5% 100 ML IV ONE (19:00)
[2021-08-03] MEDS: LACTATED RINGER'S 1,000 ML IV SCH (20:03)
[2021-08-03] MEDS: GABAPENTIN 100 MG CAP PO SCH (20:12)
[2021-08-03] MEDS: METOPROLOL SUCC 25MG EXT REL TAB PO SCH (20:12)
--- NOTE | 2021-08-03 20:25 | Operative Report (OR) ---
DATE OF PROCEDURE: 08/03/2021. PREOPERATIVE DIAGNOSIS: Acute appendicitis. POSTOPERATIVE DIAGNOSIS: Acute appendicitis. OPERATION: Laparoscopic appendectomy. SURGEON: Oscar Beard MD. PEARL DIGGER: Pia Heaton PA-C. ANESTHESIA: General. ESTIMATED BLOOD LOSS: About 10 mL FINDINGS: Acute appendicitis. COMPLICATIONS: None. INDICATIONS FOR THE PROCEDURE: This is a 71-year-old gentleman who presented to ED with acute abdomi nal pain. The patient had a CT scan diagnosis of acute appendicitis. I recommend to do a laparoscop ic appendectomy, possible open. I did talk to the patient about the benefit, risk, alternate procedu re. I indicated the risks may include, but not limited to, such as bleeding, infection, abscess, inj ury to other organs, may need more procedure, incisional hernia, myocardial infarction, DVT, stroke, and even . The patient understands. He signed informed consent and I answered all questions an d also before the procedure, we checked the patient's COVID-19, which was positive. DETAILS OF PROCEDURE: After we identified the patient and verified the procedure, we brought the pat ient to the negative pressure OR and put the patient in the supine position on the OR table. The pat ient received SCD on bilateral legs to prevent DVT. Also, patient received 3.375 grams Zosyn IV for prophylactic antibiotic. The patient received general anesthesia without difficulty. Also, patient received a Yung catheter insertion. The abdomen was prepped and draped in routine sterile fashion. After timeout, I injected the local anesthesia by using 1% lidocaine mixed with 0.5% Marcaine just ab ove the umbilicus. I then made a small incision just above umbilicus, opened fascia, opened peritone um. Under direct vision, put a Junior trocar in, connected to CO2 to create pneumoperitoneum, flow r ate at 6 liters per minute, pressure not more than 14 mmHg. Once we get a nice pneumoperitoneum, we put the camera in, looked around the abdomen, it shows a norm al finding on the small bowel and large bowel; however, there was some inflammation on the right lowe r quadrant area and at this moment, we put another two 5 mm trocars on the left lower quadrant area. We mobilized the cecum area, found the patient had significantly enlarged with inflammation of the a ppendix, confirmed diagnosis of acute appendicitis. Then we mobilized the appendiceal by using the H armonic, again we take down the appendiceal, rechecked, no active bleeding. Then, we used a 45 mm En do-OZZIE stapler for transection on the base of appendix, rechecked the staple line intact, no active b leeding, no leak. Then, we removed the appendix through the catch bag. Then, we reinserted the Junior trocar in, connected to CO2 to create pneumoperitoneum, again looked a round the abdomen, no active bleeding, no leak from staple line and we removed all trocars under dire ct vision. No active bleeding from the trocar site. Pneumoperitoneum was released, then I closed um bilical incision fascial layer by using 0 Vicryl [id number] x2, closed subcutaneous layer by kee ng 2-0 Vicryl interruptedly, closed skin by using 4-0 Vicryl continuous running, closed another two 5 mm trocar site of skin only by using 4-0 Vicryl. Then, we put the dressing on. The patient tolerat ed the procedure well. All instrument, needle and sponge counts were correct x2 at the end of the ca se and after extubating the patient in the OR the Yung catheter was removed in the OR also before th e patient was extubated. Then the patient was transferred to recovery room in stable condition. The specimen was sent to pathology. After the procedure, I did talk to the patient and patient's family member about the OR finding and the procedure we did, they understand. The or first assist registered nurse, Pia, is necessary for this procedure and her role is to hold the camera, exp osure and retraction. Job ID: [id number]
[2021-08-03] MEDS ORDERED: NON-FORMULARY MEDICATION (Riboflavin (Vitamin B2) 100 mg Tablet) PO SCH (21:00)
[2021-08-03] MEDS ORDERED: NON-FORMULARY MEDICATION (Coenzyme Q10 [Co Q-10] 100 mg Capsule) PO SCH (21:00)
[2021-08-03] MEDS ORDERED: TAMSULOSIN HCL 0.4 MG CAP PO SCH (21:00)
[2021-08-03] MEDS ORDERED: TOPIRAMATE 50 MG TAB PO SCH (21:00)
[2021-08-04] MEDS ORDERED: PIPERACILLIN/TAZOBACTAM 3.375 GM in DEXTROSE 5% 100 ML IV SCH (02:00)
[2021-08-04 03:00] LABS: Basophils # (auto) 0.01 K/uL (0-0.2); Basophils % (auto) 0.1 %; Hematocrit (blood only) 40.3 % (42-52); Hemoglobin 13.7 g/dL (14.0-18.0); Immature Granulocytes # (auto) 0.04 K/uL (0.00-0.02); Immature Granulocytes % (auto) 0.3 %; Lymphocytes # (auto) 1.24 K/uL (1.2-3.4); Lymphocytes % (auto) 8.4 %; Mean Corpuscular Hemoglobin 32.2 pg (25-34); Mean Corpuscular Volume 94.6 fL (80-100); Mean Platelet Volume 10.6 fL (7.4-10.4); Monocytes # (auto) 1.04 K/uL (0.11-0.59); Neutrophils # (auto) 12.44 K/uL (1.4-6.5); Neutrophils % (auto) 84.2 %; Platelet Count 146 K/uL (130-400); RDW Coefficient of Variation 13.1 % (11.5-14.5); RDW Standard Deviation 45.7 fL (36.4-46.3); Red Blood Count 4.26 M/uL (4.7-6.1); White Blood Count 14.77 K/uL (4.8-10.8)
[2021-08-04] MEDS: METOPROLOL SUCC 25MG EXT REL TAB PO SCH (08:22)
[2021-08-04] MEDS: LACTATED RINGER'S 1,000 ML IV SCH (08:22)
[2021-08-04] MEDS: GABAPENTIN 100 MG CAP PO SCH (08:23)
[2021-08-04 08:28] VITALS: BP 117/72; TEMP 98.8; O2SAT 95
--- NOTE | 2021-08-04 08:57 | Surgery Progress Note ---
Date of Service August 04, 2021 Assessment & Plan (1) Acute appendicitis: (2) Appendicolith: Plan: 71 yo male with 12 hour history of severe right lower abdominal pain with associated nausea. CT scan showing dilated appendix at 17 mm without evidence of abscess or perforation. Leukocytosis of 12.4K. Abdomen is soft but tender in RLQ. Plan: Dr. Beard discussed CT scan findings of acute appendicitis with patient and recommendation of laparoscopic appendectomy. Discussed risks of procedure and possibility of open procedure. Informed consent obtained. NPO COVID preop test IV fluids IV cefoxitin will stay overnight Dr. Beard and I saw patient together and he agrees with above. 08/04/2021 8:55AM F/U S /P lap appy, POD 1, update to pt about OR finding, and the procedure pt had, pt understood, I answered all question, doing better, pt wants to go home today, post-op care instruction was given, F/U me 2 weeks, Admission and Anticipated Discharge Date Admission Date: August 03, 2021 Subjective F/U S/P lap appy, POD 1 pt is doing better, less abdominal pain, no fever, Physical Exam Constitutional: WD/WN, vitals as above Eyes: PERRL, conjunctivae normal, anicteric sclerae Neck: trachea midline, no thyromegaly Respiratory: normal respiratory effort, lungs clear to auscultation Cardiovascular: RRR, no murmur, no edema Gastrointestinal (Abdomen): soft, mild tenderness at incision site, no rebound pain, all incisions intact, no redness, BS + Musculoskeletal: no cyanosis or clubbing, extremities motor strength 5/5 Neurologic: patellar DTR's 2+ bilat, sensation intact Psychiatric: A+Ox3, euthymic affect Results & Data ([facility]) Vital Signs (Past 12 Hours) Vital Signs Temp Pulse Pulse Resp BP Pulse Ox 08/04/21 08:26 37.1 C 62 16 117/72 95 08/04/21 04:47 36.7 C 60 18 97/58 L 92 08/03/21 23:44 68 08/03/21 23:01 37 C 68 16 107/60 91 Laboratory Results Abnormal lab results 08/03/21 08/03/21 08/04/21 Range/Units 08:20 10:18 02:35 WBC 14.77 H (4.8-10.8) K/uL RBC 4.26 L (4.7-6.1) M/uL Hgb 13.7 L (14.0-18.0) g/dL Hct 40.3 L (42-52) % MPV 10.6 H (7.4-10.4) fL Neut # (Auto) 12.44 H (1.4-6.5) K/uL [place] # (Auto) 1.04 H (0.11-0.59) K/uL Immature Gran # (Auto) 0.04 H (0.00-0.02) K/uL Urine Appearance Turbid A (Clear) Urine pH 8.0 H (4.5-7.5) Urine Protein 1+ H (Negative) Urine Ketones Trace H (Negative) U Epithel Cells (Auto) 10-20 H (0-5) /lpf SARS-CoV-2 (PCR) POSITIVE A* (Negative)
[2021-08-04] MEDS ORDERED: PANTOprazole 40 MG TAB PO SCH (09:00)
[2021-08-04] MEDS ORDERED: GLUCOSAMINE SULFATE 500 MG CAP PO SCH (09:00)
[2021-08-04] MEDS ORDERED: ATORVASTATIN 40 MG TAB PO SCH (09:00)
[2021-08-04] MEDS ORDERED: OMEGA-3 (PURIFIED FISH OIL) 1 GM CAP PO SCH (09:00)
[2021-08-04] MEDS ORDERED: MULTIVITAMIN TAB PO SCH (09:00)
[2021-08-04] MEDS ORDERED: TOPIRAMATE 50 MG TAB PO SCH (09:00)
[2021-08-04] MEDS ORDERED: ESCITALOPRAM OXALATE 20 MG TAB PO SCH (09:00)
[2021-08-04 10:19] VITALS: PULSE 71
--- NOTE | 2021-08-04 12:14 | Discharge Summary (DS) ---
DATE OF ADMISSION: 08/03/2021. DATE OF DISCHARGE: 08/04/2021. ADMITTING DIAGNOSIS: Acute appendicitis. DISCHARGE DIAGNOSIS: Acute appendicitis. OPERATION: Laparoscopic appendectomy. SURGEON: Oscar Beadr MD. DETAILS OF DISCHARGE SUMMARY: This is a 71-year-old gentleman who presented to ED with acute abdomin al pain. The patient had a CT scan diagnosis of acute appendicitis. I took the patient to the OR. I did laparoscopic appendectomy. The patient tolerated the procedure well. After the procedure, the patient was transferred to the negative pressure room because the patient is COVID positive, otherwis e the patient was doing fine and less abdominal pain. The patient tolerated a clear diet. No nausea , no vomiting, no fever. PHYSICAL EXAMINATION: VITAL SIGNS: Temperature is 37.1, respiratory rate 16, heart rate 62, blood pressure 117/72, O2 satu ration 95% on room air. GENERAL: The patient is alert, awake, oriented x3. HEENT: Within normal limitation. NEUROLOGIC: Intact. NECK: No JVD. CHEST: Bilateral lung sounds clear. HEART: Normal S1 and S2. No murmur. ABDOMEN: Soft, mild tenderness on the incision site. No rebound pain. All incisions intact. No re dness, no drainage. Bowel sounds positive. EXTREMITIES: No edema. The patient wanted to go home today and gave the patient postop care instruction. Also, I gave the p atient 7 days p.o. Cipro plus Flagyl antibiotic and also gave the patient Percocet for the pain. I a lso instructed the patient that the patient should come back to hospital ER if the patient develops a ny severe fever, severe abdominal pain, diarrhea. The patient understands. I will follow up the pat ient in 2 weeks. I also gave the patient postop care instruction. Job ID: [id number]
[2021-08-04] MEDS ORDERED: APIXABAN 5 MG TABLET PO SCH (18:00)
== END 2021-08-04 11:22 | disposition home or self-care (01) ==
LOC: ED 07:36 → 2W 13:36 → ASU 13:36